=== PATIENT | female | born 1975 | race Caucasian/White ===

== ENCOUNTER 2018-09-13 23:45 | Emergency (ER) | payer BC ==
[2018-09-14] MEDS ORDERED: Ondansetron 4 MG/2 ML SDV IVPUSH ONE (00:06)
[2018-09-14] MEDS ORDERED: Ketorolac 30 MG/ML SDV IVPUSH ONE (00:06)
[2018-09-14] MEDS ORDERED: HYDROmorphone 1 MG/ML Syringe IVPUSH ONE (00:06)
[2018-09-14] MEDS ORDERED: Tamsulosin 0.4 MG Cap.ER PO ONE (00:06)
--- NOTE | 2018-09-14 00:06 | EDM.PDOC ---
ED HPI GENERAL MEDICAL PROBLEM - General Chief Complaint: Back Pain or Injury Stated Complaint: PT HAS BACK PAIN Time Seen by Provider: 09/14/18 00:01 - History of Present Illness INITIAL COMMENTS - FREE TEXT/NARRATIVE: HISTORY AND PHYSICAL: History of present illness: Patient 43-year-old white female comes in with acute right flank pain with associated nausea vomiting this came on abruptly an hour prior to arrival and is quite severe she denies trauma denies history of urolithiasis denies fever chills chest pain shortness breath or other concern Review of systems: As per history of present illness and below otherwise all systems reviewed and negative. Past medical history: As per history of present illness and as reviewed below otherwise noncontributory. Surgical history: As per history of present illness and as reviewed below otherwise noncontributory. Social history: No reported history of drug or alcohol abuse. Family history: As per history of present illness and as reviewed below otherwise noncontributory. Physical exam: HEENT: Atraumatic, normocephalic, pupils reactive, negative for conjunctival pallor or scleral icterus, mucous membranes moist, throat clear, neck supple, nontender, trachea midline. Lungs: Clear to auscultation, breath sounds equal bilaterally, chest nontender. Heart: S1S2, regular, negative for clicks, rubs, or JVD. Abdomen: Soft, nondistended, nontender. Negative for masses or hepatosplenomegaly. Right-sided costovertebral tenderness. Pelvis: Stable nontender. Genitourinary: Deferred. Rectal: Deferred. Extremities: Atraumatic, negative for cords or calf pain. Neurovascular unremarkable. Neuro: Awake, alert, oriented. Cranial nerves II through XII unremarkable. Cerebellum unremarkable. Motor and sensory unremarkable throughout. Exam nonfocal. Diagnostics: CBC CMP UA CT abdomen and pelvis Therapeutics: Saline 1 L bolus Dilaudid 1 mg IV Toradol 30 mg IV Zofran 4 mg IV Flomax 0.4 mg by mouth Impression: 1 acute right flank pain Definitive disposition and diagnosis as appropriate pending reevaluation and review of above. 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 ED EXAM, GENERAL - Physical Exam Exam: See Below (See dictation) Course - Vital Signs Last Recorded V/S: Last Vital Signs Temp 36.5 C 09/13/18 23:49 Pulse 113 H 09/13/18 23:49 Resp 22 H 09/13/18 23:49 BP 131/93 H 09/13/18 23:49 Pulse Ox 94 L 09/13/18 23:49 - Orders/Labs/Meds Orders: Active Orders 24 hr Category Date Time Status Sodium Chloride 0.9% [Normal Saline] 1,000 ml Med 09/14/18 00:15 Active IV ASDIRECTED cefTRIAXone [Rocephin in Dextrose,Iso-Osm 1 GM/50 ML] 1 Med 09/14/18 01:22 Active gm Premix Bag 1 bag IV ONETIME Medication Orders Sodium Chloride (Normal Saline) 1,000 mls @ 999 mls/hr IV ASDIRECTED TOBI Last Admin: 09/14/18 00:22 Dose: 999 mls/hr Ceftriaxone Sodium/Dextrose 1 (gm/ Premix) 50 mls @ 100 mls/hr IV ONETIME ONE Stop: 09/14/18 01:51 Labs: Laboratory Tests 09/14/18 09/14/18 09/14/18 Range/Units 00:01 00:14 00:14 WBC 7.74 (4.0-11.0) K/uL RBC 4.45 (4.30-5.90) M/uL Hgb 14.4 (12.0-16.0) g/dL Hct 41.2 (36.0-46.0) % MCV 92.6 (80.0-98.0) fL MCH 32.4 H (27.0-32.0) pg MCHC 35.0 (31.0-37.0) g/dL RDW Std Deviation 42.3 (28.0-62.0) fl RDW Coeff of Chloe 13 (11.0-15.0) % Plt Count 199 (150-400) K/uL MPV 9.00 (7.40-12.00) fL Neut % (Auto) 55.9 (48.0-80.0) % Lymph % (Auto) 32.7 (16.0-40.0) % [place] % (Auto) 9.4 (0.0-15.0) % Eos % (Auto) 1.6 (0.0-7.0) % Baso % (Auto) 0.4 (0.0-1.5) % Neut # (Auto) 4.3 (1.4-5.7) K/uL Lymph # (Auto) 2.5 H (0.6-2.4) K/uL [place] # (Auto) 0.7 (0.0-0.8) K/uL Eos # (Auto) 0.1 (0.0-0.7) K/uL Baso # (Auto) 0.0 (0.0-0.1) K/uL Nucleated RBC % 0.0 /100WBC Nucleated RBCs # 0 K/uL Sodium 143 (136-145) mmol/L Potassium 3.7 (3.5-5.1) mmol/L Chloride 108 H (98-107) mmol/L Carbon Dioxide 28.2 (21.0-32.0) mmol/L BUN 21 H (7.0-18.0) mg/dL Creatinine 1.0 (0.6-1.0) mg/dL Est Cr Clr Drug Dosing 67.91 mL/min Estimated GFR (MDRD) > 60.0 ml/min Glucose 88 (74-106) mg/dL Calcium 9.5 (8.5-10.1) mg/dL Total Bilirubin 0.2 (0.2-1.0) mg/dL AST 15 (15-37) IU/L ALT 30 (14-63) IU/L Alkaline Phosphatase 58 (46-116) U/L Total Protein 6.6 (6.4-8.2) g/dL Albumin 3.2 L (3.4-5.0) g/dL Globulin 3.4 (2.6-4.0) g/dL Albumin/Globulin Ratio 0.9 (0.9-1.6) Urine Color YELLOW Urine Appearance HAZY Urine pH 5.5 (5.0-8.0) Ur Specific [place] >= 1.030 (1.001-1.035) Urine Protein NEGATIVE (NEGATIVE) mg/dL Urine Glucose (UA) NEGATIVE (NEGATIVE) mg/dL Urine Ketones 15 H (NEGATIVE) mg/dL Urine Occult Blood MODERATE H (NEGATIVE) Urine Nitrite NEGATIVE (NEGATIVE) Urine Bilirubin NEGATIVE (NEGATIVE) Urine Urobilinogen 0.2 (<2.0) EU/dL Ur Leukocyte Esterase NEGATIVE (NEGATIVE) Urine RBC 2-4 (0-2/HPF) Urine WBC 2-4 (0-5/HPF) Ur Epithelial Cells FEW (NONE-FEW) Urine Bacteria 1+ H (NEGATIVE) Meds: Medications Generic Name Dose Route Start Last Admin Trade Name Freq PRN Reason Stop Dose Admin Sodium Chloride 1,000 mls @ 999 mls/hr 09/14/18 00:15 09/14/18 00:22 Normal Saline IV 999 mls/hr ASDIRECTED TOBI Administration Ceftriaxone Sodium/Dextrose 1 50 mls @ 100 mls/hr 09/14/18 01:22 gm/ Premix IV 09/14/18 01:51 ONETIME ONE Discontinued Medications Generic Name Dose Route Start Last Admin Trade Name Freq PRN Reason Stop Dose Admin Hydromorphone HCl 1 mg 09/14/18 00:06 09/14/18 00:26 Dilaudid IVPUSH 09/14/18 00:07 1 mg ONETIME ONE Administration Ketorolac Tromethamine 30 mg 09/14/18 00:06 09/14/18 00:26 Toradol IVPUSH 09/14/18 00:07 30 mg ONETIME ONE Administration Ondansetron HCl 4 mg 09/14/18 00:06 09/14/18 00:22 Zofran IVPUSH 09/14/18 00:07 4 mg ONETIME ONE Administration Tamsulosin HCl 0.4 mg 09/14/18 00:06 09/14/18 00:28 Flomax PO 09/14/18 00:07 0.4 mg ONETIME ONE Administration Departure - Departure Time of Disposition: Disposition: Home, Self-Care 01 Condition: Good Clinical Impression: Flank pain, UTI (urinary tract infection) - Discharge Information Referrals: PCP,None [Primary Care Provider] - Forms: ED Department Discharge Additional Instructions: The following information is given to patients seen in the emergency department who are being discharged to home. This information is to outline your options for follow-up care. We provide all patients seen in our emergency department with a follow-up referral. The need for follow-up, as well as the timing and circumstances, are variable depending upon the specifics of your emergency department visit. If you don't have a primary care physician on staff, we will provide you with a referral. We always advise you to contact your personal physician following an emergency department visit to inform them of the circumstance of the visit and for follow-up with them and/or the need for any referrals to a consulting specialist. The emergency department will also refer you to a specialist when appropriate. This referral assures that you have the opportunity for followup care with a specialist. All of these measure are taken in an effort to provide you with optimal care, which includes your followup. Under all circumstances we always encourage you to contact your private physician who remains a resource for coordinating your care. When calling for followup care, please make the office aware that this follow-up is from your recent emergency room visit. If for any reason you are refused follow-up, please contact the [facility] emergency department at and asked to speak to the emergency department charge nurse. Keflex as prescribed continue current medications keep scheduled appointment with primary medical doctor and return as needed as discussed push fluids - My Orders Last 24 Hours: My Active Orders 09/14/18 00:15 Sodium Chloride 0.9% [Normal Saline] 1,000 ml IV ASDIRECTED 09/14/18 01:22 cefTRIAXone [Rocephin in Dextrose,Iso-Osm 1 GM/50 ML] 1 gm Premix Bag 1 bag IV ONETIME - Assessment/Plan Last 24 Hours: My Active Orders 09/14/18 00:15 Sodium Chloride 0.9% [Normal Saline] 1,000 ml IV ASDIRECTED 09/14/18 01:22 cefTRIAXone [Rocephin in Dextrose,Iso-Osm 1 GM/50 ML] 1 gm Premix Bag 1 bag IV ONETIME
[2018-09-14] MEDS ORDERED: Sodium Chloride 0.9% 1,000 ML IV SCH (00:15)
[2018-09-14 00:40] LABS: CHLORIDE,CL 108 mmol/L (98-107); SODIUM,NA 143 mmol/L (136-145)
--- NOTE | 2018-09-14 01:13 | CT ---
INDICATION: Right flank pain TECHNIQUE: CT abdomen and pelvis without contrast. COMPARISON: None FINDINGS: Lower chest: Unremarkable. Liver: Unremarkable. Spleen: Unremarkable. Pancreas: Unremarkable. Gallbladder and bile ducts: Unremarkable. Kidneys: Unremarkable. No kidney or ureteral stones and no hydronephrosis. Adrenal glands: Unremarkable. GI tract: Diffuse colonic fecal retention. Appendix is normal. Vascular structures: Unremarkable. Lymph nodes: Unremarkable. Miscellaneous: Small fat containing umbilical hernia. No free air or significant free fluid. Pelvic Organs: Unremarkable. Bones: Unremarkable for age. IMPRESSION: No urinary tract stones or hydronephrosis. Diffuse colonic fecal retention. Normal appearing appendix. Dictated by Mateo Cristobal MD @ 09/14/2018 1:12:01 AM Please note that all CT scans at this facility use dose modulation, iterative reconstruction, and/or weight-based dosing when appropriate to reduce radiation dose to as low as reasonably achievable. Dictated by: Mateo Cristobal MD @ 09/14/2018 01:12:09 (Electronically Signed)
[2018-09-14] MEDS ORDERED: cefTRIAXone 1 GM in Premix Bag 1 BAG IV ONE (01:22)
== END 2018-09-14 02:06 | disposition home or self-care (01) ==
LOC: MW.ED 23:45
DX: N39.0 Urinary tract infection, site not specified (principal); F41.9 Anxiety disorder, unspecified; F32.9 Major depressive disorder, single episode, unspecified; Z88.2 Allergy status to sulfonamides; Z79.899 Other long term (current) drug therapy
CPT/HCPCS: 36415; 74176; 80053; 81001; 85025; 96361; 96365; 96375; 99284; A9270; J0696; J1170; J1885; J2405; J7040; 99283

== ENCOUNTER 2018-12-02 08:52 | Emergency (ER) | payer BC ==
[2018-12-02] MEDS ORDERED: Sodium Chloride 0.9% 1,000 ML IV ONE (09:40)
[2018-12-02] MEDS ORDERED: Ondansetron 4 MG/2 ML SDV IVPUSH ONE ×2 (09:40→13:01)
[2018-12-02] MEDS ORDERED: Ketorolac 30 MG/ML SDV IVPUSH ONE (09:41)
--- NOTE | 2018-12-02 09:59 | EDM.PDOC ---
ED HPI GENERAL MEDICAL PROBLEM - General Chief Complaint: Abdominal Pain Stated Complaint: SPOKE TO NURSE Time Seen by Provider: 12/02/18 09:59 Source of Information: Reports: Patient - History of Present Illness INITIAL COMMENTS - FREE TEXT/NARRATIVE: HISTORY AND PHYSICAL: History of present illness: [Patient presents with right upper quadrant pain Initial exam was back in August with Dr. Ambrosio via CT and lab performed, in the interim patient had moved back to [place] for a few months and ended up with ultrasound confirming cholelithiasis, however now she has returned back in [place] and has continued symptoms 8 out of 10 right upper quadrant pain radiating to the back today Head required Toradol dose of Dilaudid and repeat dosing pain is intractable 6 out of 10 with some nausea no fever vomiting chills sweats ] Review of systems: As per history of present illness and below otherwise all systems reviewed and negative. Past medical history: As per history of present illness and as reviewed below otherwise noncontributory. Surgical history: As per history of present illness and as reviewed below otherwise noncontributory. Social history: No reported history of drug or alcohol abuse. Family history: As per history of present illness and as reviewed below otherwise noncontributory. Physical exam: HEENT: Atraumatic, normocephalic, pupils reactive, negative for conjunctival pallor or scleral icterus, mucous membranes moist, throat clear, neck supple, nontender, trachea midline. Lungs: Clear to auscultation, breath sounds equal bilaterally, chest nontender. Heart: S1S2, regular, negative for clicks, rubs, or JVD. Abdomen: Soft, nondistended, nontender. Negative for masses or hepatosplenomegaly. Negative for costovertebral tenderness. Pelvis: Stable nontender. Genitourinary: Deferred. Rectal: Deferred. Extremities: Atraumatic, negative for cords or calf pain. Neurovascular unremarkable. Neuro: Awake, alert, oriented. Cranial nerves II through XII unremarkable. Cerebellum unremarkable. Motor and sensory unremarkable throughout. Exam nonfocal. Diagnostics: [TBC CMP UA lipase Abdomen ultrasound limited ] Therapeutics: [Normal saline Zofran Toradol Dilaudid 1 mg IV Dilaudid 0.5 mg IV I did discuss patient with Dr. Xie recommends admit to hospitalist to see patient in consult ] Impression: [Intractable right upper quadrant pain Known history of cholelithiasis Definitive disposition and diagnosis as appropriate pending reevaluation and review of above. 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: Psychiatric History: Reports: Anxiety, Depression, PTSD - Past Surgical History Head Surgeries/Procedures: Reports: None Female Surgical History: Reports: Section, D&C, Dilitation & Evacuation, Hysterectomy, Other (See Below) Other Female Surgeries/Procedures: laparoscopy, hysteroscopy, scar revision Social & Family History - Family History Family Medical History: Noncontributory - Tobacco Use Smoking Status *Q: Never Smoker - Recreational Drug Use Recreational Drug Use: No ED ROS GENERAL - Review of Systems Review Of Systems: See Below ED EXAM, GENERAL - Physical Exam Exam: See Below Course - Vital Signs Last Recorded V/S: Last Vital Signs Temp 96.0 F 12/02/18 09:03 Pulse 85 12/02/18 11:01 Resp 14 12/02/18 11:01 BP 114/71 12/02/18 11:01 Pulse Ox 97 12/02/18 11:01 - Orders/Labs/Meds Orders: Active Orders 24 hr Category Date Time Status CULTURE BLOOD [BC] Stat Lab 12/02/18 10:07 Received CULTURE BLOOD [BC] Stat Lab 12/02/18 10:19 Received Blood Culture x2 Reflex Set [OM.PC] Stat Oth 12/02/18 09:42 Ordered Labs: Laboratory Tests 12/02/18 12/02/18 12/02/18 Range/Units 09:51 09:51 10:19 WBC 5.94 (4.0-11.0) K/uL RBC 4.54 (4.30-5.90) M/uL Hgb 14.6 (12.0-16.0) g/dL Hct 42.2 (36.0-46.0) % MCV 93.0 (80.0-98.0) fL MCH 32.2 H (27.0-32.0) pg MCHC 34.6 (31.0-37.0) g/dL RDW Std Deviation 42.6 (28.0-62.0) fl RDW Coeff of Chloe 13 (11.0-15.0) % Plt Count 247 (150-400) K/uL MPV 9.10 (7.40-12.00) fL Neut % (Auto) 69.7 (48.0-80.0) % Lymph % (Auto) 22.7 (16.0-40.0) % [place] % (Auto) 5.7 (0.0-15.0) % Eos % (Auto) 1.2 (0.0-7.0) % Baso % (Auto) 0.7 (0.0-1.5) % Neut # (Auto) 4.1 (1.4-5.7) K/uL Lymph # (Auto) 1.4 (0.6-2.4) K/uL [place] # (Auto) 0.3 (0.0-0.8) K/uL Eos # (Auto) 0.1 (0.0-0.7) K/uL Baso # (Auto) 0.0 (0.0-0.1) K/uL Nucleated RBC % 0.0 /100WBC Nucleated RBCs # 0 K/uL Sodium 142 (136-145) mmol/L Potassium 4.6 (3.5-5.1) mmol/L Chloride 105 (98-107) mmol/L Carbon Dioxide 27.7 (21.0-32.0) mmol/L BUN 18 (7.0-18.0) mg/dL Creatinine 1.1 H (0.6-1.0) mg/dL Est Cr Clr Drug Dosing 61.73 mL/min Estimated GFR (MDRD) 54.2 ml/min Glucose 93 (74-106) mg/dL Calcium 9.3 (8.5-10.1) mg/dL Total Bilirubin 0.3 (0.2-1.0) mg/dL AST 15 (15-37) IU/L ALT 29 (14-63) IU/L Alkaline Phosphatase 53 (46-116) U/L Troponin I < 0.050 (0.000-0.056) ng/mL Total Protein 7.4 (6.4-8.2) g/dL Albumin 3.7 (3.4-5.0) g/dL Globulin 3.7 (2.6-4.0) g/dL Albumin/Globulin Ratio 1.0 (0.9-1.6) Lipase 106 (73-393) U/L Urine Color YELLOW Urine Appearance CLEAR Urine pH 5.5 (5.0-8.0) Ur Specific [place] 1.020 (1.001-1.035) Urine Protein NEGATIVE (NEGATIVE) mg/dL Urine Glucose (UA) NEGATIVE (NEGATIVE) mg/dL Urine Ketones NEGATIVE (NEGATIVE) mg/dL Urine Occult Blood SMALL H (NEGATIVE) Urine Nitrite NEGATIVE (NEGATIVE) Urine Bilirubin NEGATIVE (NEGATIVE) Urine Urobilinogen 0.2 (<2.0) EU/dL Ur Leukocyte Esterase NEGATIVE (NEGATIVE) Urine RBC 0-1 (0-2/HPF) Urine WBC 0-1 (0-5/HPF) Ur Epithelial Cells FEW (NONE-FEW) Urine Bacteria FEW (NEGATIVE) Meds: Medications Discontinued Medications Generic Name Dose Route Start Last Admin Trade Name Freq PRN Reason Stop Dose Admin Hydromorphone HCl 1 mg 12/02/18 10:27 12/02/18 10:30 Dilaudid IVPUSH 12/02/18 10:28 Not Given ONETIME ONE Hydromorphone HCl 1 mg 12/02/18 10:30 12/02/18 10:34 Dilaudid IVPUSH 12/02/18 10:31 1 mg ONETIME ONE Administration Sodium Chloride 1,000 mls @ 999 mls/hr 12/02/18 09:40 12/02/18 09:50 Normal Saline IV 12/02/18 10:40 999 mls/hr STAT ONE Administration Ketorolac Tromethamine 30 mg 12/02/18 09:41 12/02/18 09:51 Toradol IVPUSH 12/02/18 09:42 30 mg ONETIME ONE Administration Ondansetron HCl 8 mg 12/02/18 09:40 12/02/18 09:51 Zofran IVPUSH 12/02/18 09:41 8 mg ONETIME ONE Administration Departure - Departure Time of Disposition: 12:40 Disposition: Refer to Observation Condition: Fair Clinical Impression: Abdominal pain, Cholelithiasis - Discharge Information Referrals: PCP,Unknown [Primary Care Provider] - Forms: ED Department Discharge - My Orders Last 24 Hours: My Active Orders 12/02/18 09:42 Blood Culture x2 Reflex Set [OM.PC] Stat 12/02/18 10:07 CULTURE BLOOD [BC] Stat 12/02/18 10:19 CULTURE BLOOD [BC] Stat - Assessment/Plan Last 24 Hours: My Active Orders 12/02/18 09:42 Blood Culture x2 Reflex Set [OM.PC] Stat 12/02/18 10:07 CULTURE BLOOD [BC] Stat 12/02/18 10:19 CULTURE BLOOD [BC] Stat
[2018-12-02] MEDS ORDERED: HYDROmorphone 2 MG/ML SDV IVPUSH ONE (10:27)
[2018-12-02] MEDS ORDERED: HYDROmorphone 2 MG/ML Syringe IVPUSH ONE (10:30)
[2018-12-02 10:38] LABS: CHLORIDE,CL 105 mmol/L (98-107); SODIUM,NA 142 mmol/L (136-145)
--- NOTE | 2018-12-02 11:11 | US ---
EXAMINATION: Right upper quadrant ultrasound HISTORY: Pain COMPARISON: 09/14/2018 TECHNIQUE: Grayscale and color Doppler imaging obtained of the right upper quadrant. FINDINGS: The visualized pancreas appears normal. The liver is normal in contour and echotexture without a focal hepatic mass. The common bile duct measures 5 mm. The gallbladder wall thickness is normal. There is sludge and gallstones noted within the gallbladder. No pericholecystic fluid. The right kidney measures 10.4 cm [id number] without evidence hydronephrosis. IMPRESSION: 1. Cholelithiasis without evidence of cholecystitis.
[2018-12-02] MEDS ORDERED: HYDROmorphone 2 MG/ML SDV IVPUSH PRN (12:56)
[2018-12-02] MEDS ORDERED: HYDROmorphone 1 MG/ML Syringe ONE (12:59)
[2018-12-02] MEDS ORDERED: Ondansetron 4 MG/2 ML SDV ONE (13:02)
[2018-12-02] MEDS ORDERED: HYDROmorphone 1 MG/ML Syringe IVPUSH PRN ×2 (13:06→13:59)
[2018-12-02] MEDS ORDERED: Ondansetron 4 MG/2 ML SDV IVPUSH PRN (13:59)
[2018-12-02] MEDS ORDERED: Sodium Chloride 0.9% 1,000 ML IV SCH (14:00)
--- NOTE | 2018-12-02 14:02 | PCM.HP ---
H&P History of Present Illness - General Date of Service: 12/02/18 Admit Problem/Dx: Admission Diagnosis/Problem Admission Diagnosis/Problem Pain Source of Information: Patient History Limitations: Reports: No Limitations Right Middle Back Pain Score (Numeric/FACES): 8 - Related Data Allergies/Adverse Reactions: Allergies Allergy/AdvReac Type Severity Reaction Status Date / Time adhesive tape Allergy Blisters Verified 12/02/18 09:09 Sulfa (Sulfonamide Allergy Rash Verified 12/02/18 09:06 Antibiotics) Home Medications: Home Meds ClonazePAM [KlonoPIN] 0.5 mg PO BID 07/10/18 [History] Estrogens, Conjugated [Premarin] 0.625 mg PO DAILY 07/10/18 [History] buPROPion HCl [Wellbutrin Xl] 300 mg PO DAILY 07/10/18 [History] Past Medical History HEENT History: Reports: Other (See Below) Other HEENT History: wears glasses Genitourinary History: Reports: 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: Psychiatric History: Reports: Anxiety, Depression, PTSD - Past Surgical History Head Surgeries/Procedures: Reports: None Female Surgical History: Reports: Section, D&C, Dilitation & Evacuation, Hysterectomy, Other (See Below) Other Female Surgeries/Procedures: laparoscopy, hysteroscopy, scar revision Social & Family History - Family History Family Medical History: Noncontributory - Tobacco Use Smoking Status *Q: Never Smoker - Recreational Drug Use Recreational Drug Use: No Exam - Vital Signs Vital Signs: Last Vital Signs Temp 96.0 F 12/02/18 09:03 Pulse 82 12/02/18 13:10 Resp 18 12/02/18 13:10 BP 116/75 12/02/18 13:10 Pulse Ox 92 L 12/02/18 13:10 Weight: 70.307 kg - Patient Data Lab Results Last 24 hrs: Laboratory Results - last 24 hr 12/02/18 12/02/18 12/02/18 Range/Units 09:51 09:51 10:19 WBC 5.94 (4.0-11.0) K/uL RBC 4.54 (4.30-5.90) M/uL Hgb 14.6 (12.0-16.0) g/dL Hct 42.2 (36.0-46.0) % MCV 93.0 (80.0-98.0) fL MCH 32.2 H (27.0-32.0) pg MCHC 34.6 (31.0-37.0) g/dL RDW Std Deviation 42.6 (28.0-62.0) fl RDW Coeff of Chloe 13 (11.0-15.0) % Plt Count 247 (150-400) K/uL MPV 9.10 (7.40-12.00) fL Neut % (Auto) 69.7 (48.0-80.0) % Lymph % (Auto) 22.7 (16.0-40.0) % [place] % (Auto) 5.7 (0.0-15.0) % Eos % (Auto) 1.2 (0.0-7.0) % Baso % (Auto) 0.7 (0.0-1.5) % Neut # (Auto) 4.1 (1.4-5.7) K/uL Lymph # (Auto) 1.4 (0.6-2.4) K/uL [place] # (Auto) 0.3 (0.0-0.8) K/uL Eos # (Auto) 0.1 (0.0-0.7) K/uL Baso # (Auto) 0.0 (0.0-0.1) K/uL Nucleated RBC % 0.0 /100WBC Nucleated RBCs # 0 K/uL Sodium 142 (136-145) mmol/L Potassium 4.6 (3.5-5.1) mmol/L Chloride 105 (98-107) mmol/L Carbon Dioxide 27.7 (21.0-32.0) mmol/L BUN 18 (7.0-18.0) mg/dL Creatinine 1.1 H (0.6-1.0) mg/dL Est Cr Clr Drug Dosing 61.73 mL/min Estimated GFR (MDRD) 54.2 ml/min Glucose 93 (74-106) mg/dL Calcium 9.3 (8.5-10.1) mg/dL Total Bilirubin 0.3 (0.2-1.0) mg/dL AST 15 (15-37) IU/L ALT 29 (14-63) IU/L Alkaline Phosphatase 53 (46-116) U/L Troponin I < 0.050 (0.000-0.056) ng/mL Total Protein 7.4 (6.4-8.2) g/dL Albumin 3.7 (3.4-5.0) g/dL Globulin 3.7 (2.6-4.0) g/dL Albumin/Globulin Ratio 1.0 (0.9-1.6) Lipase 106 (73-393) U/L Urine Color YELLOW Urine Appearance CLEAR Urine pH 5.5 (5.0-8.0) Ur Specific [place] 1.020 (1.001-1.035) Urine Protein NEGATIVE (NEGATIVE) mg/dL Urine Glucose (UA) NEGATIVE (NEGATIVE) mg/dL Urine Ketones NEGATIVE (NEGATIVE) mg/dL Urine Occult Blood SMALL H (NEGATIVE) Urine Nitrite NEGATIVE (NEGATIVE) Urine Bilirubin NEGATIVE (NEGATIVE) Urine Urobilinogen 0.2 (<2.0) EU/dL Ur Leukocyte Esterase NEGATIVE (NEGATIVE) Urine RBC 0-1 (0-2/HPF) Urine WBC 0-1 (0-5/HPF) Ur Epithelial Cells FEW (NONE-FEW) Urine Bacteria FEW (NEGATIVE) Result Diagrams: 12/02/18 09:51 12/02/18 09:51 Orders Last 24hrs: Active Orders 24 hr Category Date Time Status Admission Status [Patient Status] [ADT] Stat ADT 12/02/18 12:40 Active Antiembolic Devices [RC] PER UNIT ROUTINE Care 12/02/18 14:00 Ordered Intake and Output [RC] QSHIFT Care 12/02/18 14:00 Ordered Notify Provider Consults [RC] ASDIRECTED Care 12/02/18 14:01 Ordered Oxygen Therapy [RC] PRN Care 12/02/18 13:59 Ordered Up ad Erika [RC] ASDIRECTED Care 12/02/18 13:59 Ordered VTE/DVT Education [RC] PER UNIT ROUTINE Care 12/02/18 13:59 Ordered Vital Signs [RC] Q4H Care 12/02/18 13:59 Ordered Consult to Physician [CONS] Routine Cons 12/02/18 13:59 Ordered Nothing Per Oral Diet [DIET] Diet 12/02/18 Dinner Ordered CBC WITH AUTO DIFF [HEME] AM Lab 12/03/18 05:11 Ordered CBC WITH AUTO DIFF [HEME] AM Lab 12/04/18 05:11 Ordered CBC WITH AUTO DIFF [HEME] AM Lab 12/05/18 05:11 Ordered COMPREHENSIVE METABOLIC PN,CMP [CHEM] AM Lab 12/03/18 05:11 Ordered COMPREHENSIVE METABOLIC PN,CMP [CHEM] AM Lab 12/04/18 05:11 Ordered COMPREHENSIVE METABOLIC PN,CMP [CHEM] AM Lab 12/05/18 05:11 Ordered CULTURE BLOOD [BC] Stat Lab 12/02/18 10:07 Received CULTURE BLOOD [BC] Stat Lab 12/02/18 10:19 Received HYDROmorphone [Dilaudid] Med 12/02/18 13:06 Active 0.5 mg IVPUSH ONETIME PRN HYDROmorphone [Dilaudid] Med 12/02/18 13:59 Ordered 0.5 mg IVPUSH Q2H PRN Ondansetron [Zofran] Med 12/02/18 13:59 Ordered 4 mg IVPUSH Q4H PRN Sodium Chloride 0.9% @ 125 MLS/HR (1000ml) Med 12/02/18 14:00 Ordered Sodium Chloride 0.9% [Normal Saline] 1,000 ml IV ASDIRECTED Blood Culture x2 Reflex Set [OM.PC] Stat Oth 12/02/18 09:42 Ordered Sequential Compression Device [OM.PC] Per Unit Routine Oth 12/02/18 14:00 Ordered Resuscitation Status Routine Resus Stat 12/02/18 13:59 Ordered Medication Orders Hydromorphone HCl (Dilaudid) 0.5 mg IVPUSH ONETIME PRN PRN Reason: Pain Last Admin: 12/02/18 13:08 Dose: 0.5 mg
--- NOTE | 2018-12-02 22:03 | CONS ---
DATE OF CONSULTATION: 12/02/2018 DATE OF : 1975 PRIMARY CARE PHYSICIAN: Unknown PCP This is a consult from Dr. Mason in the ED. CONCERNING QUESTION: Symptomatic cholelithiasis. HISTORY OF PRESENT ILLNESS: The patient is a 43-year-old lady, complained to have a gallstone problem since August, and the patient was out and get ultrasound done at [place] and noted to have gallstones, and the patient was kind of doing fine, have gallstone attack every now and then, and the patient back in town and realized the attack is getting more frequent for the last week or two, and pain is epigastrium radiated to the back and radiated to the right upper quadrant, and repeat ultrasound in the emergency room shows a stone and sludge, and no signs or symptoms of cholecystitis. Surgery was consulted for management. Currently, the patient remarked the pain is about 7/10 and denied black urine. Denied white stool and denied jaundice. PAST MEDICAL HISTORY: Significant for no diabetic, MT, CVA, hypertension. PAST SURGICAL HISTORY: She has x2 and scar revision and abdominal hysterectomy. ALLERGIES: Please refer to nursing with detail. MEDICATIONS: Please refer to nursing with detail. SOCIAL HISTORY: Denied tobacco or alcohol abuse. FAMILY HISTORY: Noncontributory. PHYSICAL EXAMINATION: GENERAL: The patient is having a crying spell and tearful because of the pain and concerned about pain management. Otherwise, the patient is alert and oriented x3. HEENT: Normocephalic and atraumatic. Sclerae anicteric. LUNGS: Clear to auscultation. HEART: Regular rate and rhythm. ABDOMEN: Soft, nondistended. No pulsating tender in the midline abdominal structure. Minimal tenderness on the right upper quadrant. No rebound tenderness. No guarding and well-healed Pfannenstiel incision from superior spine to superior spine, very large. No signs or symptoms of hernia. LABORATORY DATA: Upon consultation, the patient is afebrile and white count is 5.9 and platelets 247, H and H are 15 and 4. , potassium is 4.6, BUN is 18, creatinine is 1.1. Total bilirubin is 0.3. AST, ALT of 50 and 29, alkaline phosphatase is 53, lipase is 106. Urine does not have signs or symptoms of UTI. IMPRESSION: Ultrasound shows stone and sludge and no pericholecystic fluid. Common bile duct is 5 mm. IMPRESSION: Symptomatic cholelithiasis, will benefit from pain management and antibiotic coat on the gallbladder. We had a lot of discussion and explanation with the patient. Spent 45 minutes with the patient. The patient preferred to stay at home to cool down the gallbladder, and the patient with abx and pain medications. Followup appointment with me in 2 days, and tentatively schedule surgery on morning. As always, thank you for the kind referral. JAKE / VANESSA /[id number] JOHANN
== END 2018-12-02 14:28 | disposition home or self-care (01) ==
LOC: MW.ED 08:52 → MW.MS 13:11 → UNDOADMOB 13:11 → MW.ED 14:28
DX: K80.20 Calculus of gallbladder without cholecystitis without obstruction (principal); R10.11 Right upper quadrant pain; F41.9 Anxiety disorder, unspecified; F32.9 Major depressive disorder, single episode, unspecified; Z88.2 Allergy status to sulfonamides; Z79.899 Other long term (current) drug therapy
CPT/HCPCS: 36415; 76705; 80053; 81001; 83690; 84484; 85025; 87040; 96361; 96374; 96375; 96376; 99284; J1170; J1885; J2405; J7040

== ENCOUNTER 2018-12-05 08:06 | Day surgery (SDC) | payer BC ==
[~2018-12-05 08:06] MED LIST: Lactated Ringers 1,000 ML IV SCH; ceFAZolin 2 GM in Premix Bag 1 BAG IV ONE
[2018-12-05] MEDS ORDERED: Bupivacaine 25%/EPINEPHrine/PF 30 ML ONE (09:13)
[2018-12-05] MEDS ORDERED: Octyl 2-Cyanoacrylate 1 Tube ONE (09:14)
--- NOTE | 2018-12-05 09:39 | PCM.PREANE ---
Preanesthetic Assessment - Anesthesia/Transfusion/Family Hx Anesthesia History: Prior Anesthesia Without Reaction Family History of Anesthesia Reaction: No Transfusion History: No Prior Transfusion(s) Intubation History: Unknown - Review of Systems General: No Symptoms Pulmonary: No Symptoms Cardiovascular: No Symptoms Gastrointestinal: No Symptoms Neurological: No Symptoms Other: Reports: None - Physical Assessment NPO Status Date: 12/04/18 NPO Status Time: 21:00 O2 Sat by Pulse Oximetry: 100 Respiratory Rate: 16 Vital Signs: Last Vital Signs Temp 96.1 F 12/05/18 08:55 Pulse 102 H 12/05/18 08:55 Resp 16 12/05/18 08:55 BP 133/66 12/05/18 08:55 Pulse Ox 100 12/05/18 08:55 Height: 5 ft 6 in Weight: 74.389 kg ASA Class: 2 Mental Status: Alert & Oriented x3 Airway Class: Mallampati = 2 Dentition: Reports: Normal Dentition ROM/Head Extension: Full Lungs: Clear to Auscultation, Normal Respiratory Effort Cardiovascular: Regular Rate, Regular Rhythm - Allergies Allergies/Adverse Reactions: Allergies Allergy/AdvReac Type Severity Reaction Status Date / Time adhesive tape Allergy Blisters Verified 12/04/18 15:15 Sulfa (Sulfonamide Allergy Rash Verified 12/04/18 15:15 Antibiotics) - Blood Blood Available: No - Anesthesia Plan Pre-Op Medication Ordered: None - Acknowledgements Anesthesia Type Planned: General Anesthesia Pt an Appropriate Candidate for the Planned Anesthesia: Yes Alternatives and Risks of Anesthesia Discussed w Pt/Guardian: Yes Pt/Guardian Understands and Agrees with Anesthesia Plan: Yes PreAnesthesia Questionnaire HEENT History: Reports: Other (See Below) Other HEENT History: wears glasses Cardiovascular History: Reports: None Respiratory History: Reports: None Gastrointestinal History: Reports: Cholelithiasis Genitourinary History: Reports: None CRA History: Reports: Musculoskeletal History: Reports: None Neurological History: Reports: None Psychiatric History: Reports: Anxiety, Depression, PTSD Endocrine/Metabolic History: Reports: None Hematologic History: Reports: None Immunologic History: Reports: None Oncologic (Cancer) History: Reports: None Dermatologic History: Reports: None - Past Surgical History Head Surgeries/Procedures: Reports: None HEENT Surgical History: Reports: None Cardiovascular Surgical History: Reports: None Respiratory Surgical History: Reports: None GI Surgical History: Reports: None Female Surgical History: Reports: Section, Cervical Cryotherapy, D&C , Dilitation & Evacuation, Hysterectomy, Other (See Below) Other Female Surgeries/Procedures: laparoscopy, hysteroscopy, scar revision Endocrine Surgical History: Reports: None Neurological Surgical History: Reports: None Musculoskeletal Surgical History: Reports: None Oncologic Surgical History: Reports: None Dermatological Surgical History: Reports: None - SUBSTANCE USE Smoking Status *Q: Never Smoker Recreational Drug Use History: No - HOME MEDS Home Medications: Home Meds ClonazePAM [KlonoPIN] 0.5 mg PO BID PRN 07/10/18 [History] Estrogens, Conjugated [Premarin] 0.625 mg PO DAILY 07/10/18 [History] buPROPion HCl [Wellbutrin Xl] 300 mg PO DAILY 07/10/18 [History] Docusate Sodium 100 mg PO ASDIRECTED 12/04/18 [History] HYDROmorphone [Dilaudid] 0.5 tab PO ASDIRECTED PRN 12/04/18 [History] Levofloxacin 750 mg PO DAILY 12/04/18 [History] Promethazine HCl 25 mg PO ASDIRECTED PRN 12/04/18 [History] - CURRENT (IN HOUSE) MEDS Current Meds: Current Medications Lactated Ringer's (Ringers, Lactated) 1,000 mls @ 125 mls/hr IV ASDIRECTED COUNTS INCLUDE 234 BEDS AT THE [facility] Last Admin: 12/05/18 09:10 Dose: 125 mls/hr Discontinued Medications Lactated Ringer's (Ringers, Lactated) 1,000 mls @ 125 mls/hr IV ASDIRECTED COUNTS INCLUDE 234 BEDS AT THE [facility] Cefazolin Sodium/Dextrose 2 gm (/ Premix) 50 mls @ 100 mls/hr IV ONETIME ONE Stop: 12/05/18 05:29 Bupivacaine HCl/Epinephrine Bitart (Sensorc Mpf 0.25%-Epi [id number]) Confirm Administered Dose 30 mls @ as directed .ROUTE .STK-MED ONE Stop: 12/05/18 09:14 Octyl Cyanoacrylate (Dermabond Advance) Confirm Administered Dose 1 applic .ROUTE .STK-MED ONE Stop: 12/05/18 09:15
[2018-12-05] MEDS ORDERED: Scopolamine 1.5 MG Transdermal Patch TRDERM PRN (09:46)
[2018-12-05] MEDS ORDERED: Propofol 200 MG/20 ML SDV ONE (09:55)
[2018-12-05] MEDS ORDERED: Midazolam 1 MG/ML 2 ML SDV ONE (09:56)
[2018-12-05] MEDS ORDERED: fentaNYL 250 MCG/5 ML SDV ONE (09:56)
[2018-12-05] MEDS ORDERED: Ondansetron 4 MG/2 ML SDV ONE (10:31)
[2018-12-05] MEDS ORDERED: Dexamethasone 4 MG/ML 5 ML MDV ONE (10:31)
[2018-12-05] MEDS ORDERED: Rocuronium 100 MG/10 ML Syringe ONE (10:31)
[2018-12-05] MEDS ORDERED: Promethazine 25 MG/ML SDV IM ONE (10:57)
[2018-12-05] MEDS ORDERED: fentaNYL 100 MCG/2 ML SDV IVPUSH PRN (10:57)
[2018-12-05] MEDS ORDERED: Neostigmine Methylsulfate 1 MG/ML 5 ML Syringe ONE (11:15)
[2018-12-05] MEDS ORDERED: Glycopyrrolate 0.2 MG/ML SDV ONE (11:15)
[2018-12-05] MEDS ORDERED: Ketorolac 30 MG/ML SDV ONE (11:18)
[2018-12-05] MEDS ORDERED: HYDROmorphone 2 MG/ML Syringe ONE (11:52)
[2018-12-05] MEDS: HYDROmorphone 2 MG/ML SDV IVPUSH ONE ×2 (11:53→12:03)
--- NOTE | 2018-12-05 12:18 | PCM.POSTAN ---
POST ANESTHESIA ASSESSMENT - MENTAL STATUS Mental Status: Alert, Oriented - RESPIRATORY Respiratory Status: Respiratory Rate WNL, Airway Patent, O2 Saturation Stable - CARDIOVASCULAR CV Status: Pulse Rate WNL, Blood Pressure Stable - GASTROINTESTINAL GI Status: No Symptoms - PAIN Pain Score: 0 - POST OP HYDRATION Hydration Status: Adequate & Stable
--- NOTE | 2018-12-05 12:56 | PCM48HPAN ---
Post Anesthesia Note - EVALUATION WITHIN 48HRS OF ANESTHETIC Vital Signs in Normal Range: Yes Patient Participated in Evaluation: Yes Respiratory Function Stable: Yes Airway Patent: Yes Cardiovascular Function Stable: Yes Hydration Status Stable: Yes Pain Control Satisfactory: Yes Nausea and Vomiting Control Satisfactory: Yes Mental Status Recovered: Yes Resp Rate: 16
--- NOTE | 2018-12-05 16:59 | PCM.OPNOTE ---
- General Post-Op/Procedure Note Date of Surgery/Procedure: 12/05/18 Operative Procedure(s): lap vahe Findings: gb was green and yellow, cw chronic cholecystitis; wall was not thickened; several small stones; bile was very thick, almost like glue; [id number] Pre Op Diagnosis: acute and chronic cholecystitis Post-Op Diagnosis: Same Anesthesia Technique: General ET Tube Primary Surgeon: Josep Hubbard Pathology: sent Complications: None Condition: Good Free Text/Narrative:: Intake & Output 12/05/18 12/05/18 12/05/18 06:59 14:59 22:59 Intake Total 1350 Output Total 150 Balance 1200
--- NOTE | 2018-12-06 01:45 | OR ---
SURGEON: Josep Hubbard MD DATE OF PROCEDURE: 12/05/2018 PREOPERATIVE DIAGNOSIS: Acute on chronic cholecystitis. POSTOPERATIVE DIAGNOSIS: Acute on chronic cholecystitis. PROCEDURE PERFORMED: Laparoscopic cholecystectomy. COMPLICATIONS: None. FINDINGS: Gallbladder was green and yellow, consistent with chronic cholecystitis. Wall was not thickened. Several small stones. Bile was very thick, almost like glue. PROCEDURE DETAILS: The patient was taken to the operating room and placed in the supine position. After the intubation of general endotracheal anesthesia, the patient's abdomen was prepped and draped in the usual sterile fashion. Using Dataguise, a 12 mm trocar was placed supraumbilically and then followed with pneumoperitoneum. A 5 mm trocar was placed in the epigastrium and two 5 mm trocars placed in the right upper quadrant. The placement of the last three trocars was done under direct video supervision. Upon gaining entrance to the abdominal cavity, an extensive examination was then performed. The gallbladder was located and identified and retracted to the dome of the liver at the triangle of Calot. The cystic duct was clipped three more times and then using the endoscopic clip, was transected with placement of the endoscopic clip and transection was performed with care, ensuring the posterior prong of the instruments were clearly visualized prior to exercising the procedure. The gallbladder was dissected using electrocautery out of the liver bed and then removed using endoscopic bag through the umbilical site. The gallbladder was removed en bloc and there was no bile spillage and this was then followed with extensive irrigation until the bile was clear from blood and bile. The trocars were then removed under direct video supervision. The 12 mm umbilical site was then closed with deep stitches using 0 Vicryl followed with proximal stitches using 3-0 Vicryl and Dermabond. The other three trocar sites were closed with 3-0 Vicryl followed with approximation of skin with Dermabond. The patient was then awakened and extubated and transferred to the recovery room in hemodynamically stable condition. At the conclusion of the surgery, before closing the abdominal wound, instrument count and sponge count were done and were correct. The patient tolerated the procedure well and there were no intraoperative complications. Dr. Hubbard was present through the whole procedure. Just before surgery, a timeout was called. The patient was identified and procedure identified and procedure started. Intraoperative findings, as dictated above. LIANS / MODL /[id number]
== END 2018-12-05 13:19 | disposition home or self-care (01) ==
LOC: MW.SDS 08:06
PROVIDERS: ATTEND Surgery
DX: K80.12 Calculus of gallbladder with acute and chronic cholecystitis without obstruction (principal); F41.9 Anxiety disorder, unspecified; Z79.810 Long term (current) use of selective estrogen receptor modulators (SERMs); Z79.891 Long term (current) use of opiate analgesic; Z79.2 Long term (current) use of antibiotics; Z79.899 Other long term (current) drug therapy; Z79.890 Hormone replacement therapy; Z88.2 Allergy status to sulfonamides; Z91.048 Other nonmedicinal substance allergy status
CPT/HCPCS: 47562; 88304; A9270; J1100; J1170; J1885; J2001; J2250; J2405; J2704; J3010; J3490; J7120; 00790

== ENCOUNTER 2018-12-14 12:46 | Emergency (ER) | payer BC ==
--- NOTE | 2018-12-14 13:05 | EDM.PDOC ---
ED HPI GENERAL MEDICAL PROBLEM - General Chief Complaint: Abdominal Pain Stated Complaint: PAIN IN AREA PT HAD SURG. Time Seen by Provider: 12/14/18 13:00 Source of Information: Reports: Patient History Limitations: Reports: No Limitations - History of Present Illness INITIAL COMMENTS - FREE TEXT/NARRATIVE: HISTORY AND PHYSICAL: History of present illness: Patient is a 43-year-old female who presents to the emergency room with complaints of right upper quadrant abdominal pain and right flank pain. Patient had a cholecystectomy on 12/05/[address] Hubbard. She states she has Dilaudid and promethazine available to her at home. She has been taking his medications routinely over the past 24 hours but now has intractable abdominal pain. States "my pain is just as bad as before they took my gallbladder out". Patient denies any fever, chills, headache, change in vision, syncope or near syncope. Denies any chest pain, shortness of breath or cough. Denies any diarrhea, constipation or dysuria. Has not noted any blood in urine or stool. Patient has been eating and drinking appropriately. Review of systems: As per history of present illness and below otherwise all systems reviewed and negative. Past medical history: As per history of present illness and as reviewed below otherwise noncontributory. Surgical history: As per history of present illness and as reviewed below otherwise noncontributory. Social history: See social history for further information Family history: As per history of present illness and as reviewed below otherwise noncontributory. Physical exam: General: Well-developed and well-nourished 43-year-old female. Alert and oriented. Nontoxic appearing and in no acute distress. HEENT: Atraumatic, normocephalic, pupils equal and reactive bilaterally, negative for conjunctival pallor or scleral icterus, mucous membranes moist, TMs normal bilaterally, throat clear, neck supple, nontender, trachea midline. No drooling or trismus noted. No meningeal signs. No hot potato voice noted. Lungs: Clear to auscultation, breath sounds equal bilaterally, chest nontender. Heart: S1S2, regular rate and rhythm without overt murmur Abdomen: Soft, nondistended, RUQ tenderness. Negative for masses or hepatosplenomegaly. Negative for costovertebral tenderness. Pelvis: Stable nontender. Genitourinary: Deferred. Rectal: Deferred. Skin: Postoperative incision sites are intact without erythema, drainage or soft tissue swelling. Otherwise skin is intact, warm, dry. No lesions or rashes noted. Extremities: Atraumatic, moves all extremities per self without difficulty or deficits, negative for cords or calf pain. Neurovascular unremarkable. Neuro: Awake, alert, oriented. Cranial nerves II through XII unremarkable. Cerebellum unremarkable. Motor and sensory unremarkable throughout. Exam nonfocal. Notes: AST/ ALT and total bilirubin are elevated. CT shows mild postprocedural fat stranding in the cholecystectomy bed. No loculated fluid collection. Mild dilatation of the common bile duct is likely secondary to reservoir effect. The stomach is fluid-filled. Borderline wall thickening of the antrum. This may be transient. However, in the setting of upper abdominal symptoms mild gastritis is a consideration Dr Ash was consulted on this case, he is agreeable to come and talk with the patient/. 1600: Mihir here to talk with patient about plan of care. Patient will be discharged to home. He would like the patient to call Sunday to Dr. Hubbard' s office, patient will likely have a HIDA scan done on Sunday. I will give prescriptions per Dr. Ash's request to patient. Supportive care measures were reviewed and discussed. Both patient and voice understanding and are agreeable, denies any further questions or concerns at this time. Diagnostics: CBC, CMP, Lipase, UA, CT abdomen/pelvis Therapeutics: IV fluids, Zofran, Dilaudid Prescriptions (per Dr Ash's request): Dilaudid 2mg q4 PRN (#20) Carafate 1 gm po QID (#20) Reglan 10mg QID (#20) Phenergan 25mg q6 PRN (#20) Impression: Post surgical abdominal pain Elevated transaminase Plan: 1. NPO after midnight on Sunday. Call Dr Hubbard's office Sunday morning as they need to call and schedule your HIDA scan for that day. It is not for sure that they can schedule for this on Sunday, but his office will try to get you in. 2. Take your medications as prescribed. 3. Follow the directions that you discussed with Dr Ash. 4. Return to the ED as needed and as discussed. Definitive disposition and diagnosis as appropriate pending reevaluation and review of above. Onset: Today Right Upper Abdomen Pain Score (Numeric/FACES): 9 - Related Data Allergies Allergy/AdvReac Type Severity Reaction Status Date / Time adhesive tape Allergy Blisters Verified 12/14/18 12:59 Sulfa (Sulfonamide Allergy Rash Verified 12/14/18 12:59 Antibiotics) Home Meds: Home Meds ClonazePAM [KlonoPIN] 0.5 mg PO BID PRN 07/10/18 [History] Estrogens, Conjugated [Premarin] 0.625 mg PO DAILY 07/10/18 [History] buPROPion HCl [Wellbutrin Xl] 300 mg PO DAILY 07/10/18 [History] Docusate Sodium 100 mg PO ASDIRECTED 12/04/18 [History] HYDROmorphone [Dilaudid] 0.5 tab PO ASDIRECTED PRN 12/04/18 [History] Levofloxacin 750 mg PO DAILY 12/04/18 [History] Promethazine HCl 25 mg PO ASDIRECTED PRN 12/04/18 [History] Past Medical History HEENT History: Reports: Other (See Below) Other HEENT History: wears glasses Cardiovascular History: Reports: None Respiratory History: Reports: None Gastrointestinal History: Reports: Cholelithiasis Genitourinary History: Reports: None MANNEQUIN MAKER History: Reports: Musculoskeletal History: Reports: None Neurological History: Reports: None Psychiatric History: Reports: Anxiety, Depression, PTSD Endocrine/Metabolic History: Reports: None Hematologic History: Reports: None Immunologic History: Reports: None Oncologic (Cancer) History: Reports: None Dermatologic History: Reports: None - Past Surgical History Head Surgeries/Procedures: Reports: None HEENT Surgical History: Reports: None Cardiovascular Surgical History: Reports: None Respiratory Surgical History: Reports: None GI Surgical History: Reports: None Female Surgical History: Reports: Section, Cervical Cryotherapy, D&C , Dilitation & Evacuation, Hysterectomy, Other (See Below) Other Female Surgeries/Procedures: laparoscopy, hysteroscopy, scar revision Endocrine Surgical History: Reports: None Neurological Surgical History: Reports: None Musculoskeletal Surgical History: Reports: None Oncologic Surgical History: Reports: None Dermatological Surgical History: Reports: None Social & Family History - Family History Family Medical History: Noncontributory ED ROS GENERAL - Review of Systems Review Of Systems: ROS reveals no pertinent complaints other than HPI. ED EXAM, GI/ABD - Physical Exam Exam: See Below (See dictation) Course - Vital Signs Last Recorded V/S: Last Vital Signs Temp 97.4 F 12/14/18 13:00 Pulse 98 12/14/18 15:48 Resp 16 12/14/18 15:48 BP 115/68 12/14/18 15:48 Pulse Ox 95 12/14/18 15:48 - Orders/Labs/Meds Labs: Laboratory Tests 12/14/18 12/14/18 12/14/18 Range/Units 13:15 13:15 13:20 WBC 8.58 (4.0-11.0) K/uL RBC 4.60 (4.30-5.90) M/uL Hgb 14.8 (12.0-16.0) g/dL Hct 42.2 (36.0-46.0) % MCV 91.7 (80.0-98.0) fL MCH 32.2 H (27.0-32.0) pg MCHC 35.1 (31.0-37.0) g/dL RDW Std Deviation 41.0 (28.0-62.0) fl RDW Coeff of Chloe 12 (11.0-15.0) % Plt Count 270 (150-400) K/uL MPV 9.40 (7.40-12.00) fL Neut % (Auto) 72.5 (48.0-80.0) % Lymph % (Auto) 16.3 (16.0-40.0) % [place] % (Auto) 10.3 (0.0-15.0) % Eos % (Auto) 0.6 (0.0-7.0) % Baso % (Auto) 0.3 (0.0-1.5) % Neut # (Auto) 6.2 H (1.4-5.7) K/uL Lymph # (Auto) 1.4 (0.6-2.4) K/uL [place] # (Auto) 0.9 H (0.0-0.8) K/uL Eos # (Auto) 0.1 (0.0-0.7) K/uL Baso # (Auto) 0.0 (0.0-0.1) K/uL Nucleated RBC % 0.0 /100WBC Nucleated RBCs # 0 K/uL Sodium 140 (136-145) mmol/L Potassium 4.0 (3.5-5.1) mmol/L Chloride 103 (98-107) mmol/L Carbon Dioxide 27.6 (21.0-32.0) mmol/L BUN 12 (7.0-18.0) mg/dL Creatinine 0.9 (0.6-1.0) mg/dL Est Cr Clr Drug Dosing 72.53 mL/min Estimated GFR (MDRD) > 60.0 ml/min Glucose 118 H (74-106) mg/dL Calcium 9.6 (8.5-10.1) mg/dL Total Bilirubin 1.9 H (0.2-1.0) mg/dL AST 731 H (15-37) IU/L ALT 593 H (14-63) IU/L Alkaline Phosphatase 220 H (46-116) U/L Total Protein 7.7 (6.4-8.2) g/dL Albumin 3.5 (3.4-5.0) g/dL Globulin 4.2 H (2.6-4.0) g/dL Albumin/Globulin Ratio 0.8 L (0.9-1.6) Lipase 91 (73-393) U/L Urine Color YELLOW Urine Appearance CLEAR Urine pH 8.5 H (5.0-8.0) Ur Specific [place] 1.010 (1.001-1.035) Urine Protein NEGATIVE (NEGATIVE) mg/dL Urine Glucose (UA) NEGATIVE (NEGATIVE) mg/dL Urine Ketones NEGATIVE (NEGATIVE) mg/dL Urine Occult Blood TRACE-INTACT H (NEGATIVE) Urine Nitrite NEGATIVE (NEGATIVE) Urine Bilirubin NEGATIVE (NEGATIVE) Urine Urobilinogen 0.2 (<2.0) EU/dL Ur Leukocyte Esterase NEGATIVE (NEGATIVE) Urine RBC 0-2 (0-2/HPF) Urine WBC 0-2 (0-5/HPF) Ur Epithelial Cells RARE (NONE-FEW) Urine Bacteria RARE (NEGATIVE) Meds: Medications Discontinued Medications Generic Name Dose Route Start Last Admin Trade Name Brianq PRN Reason Stop Dose Admin Hydromorphone HCl 1 mg 12/14/18 13:08 12/14/18 13:27 Dilaudid IVPUSH 12/14/18 13:09 1 mg ONETIME ONE Administration Sodium Chloride 1,000 mls @ 999 mls/hr 12/14/18 13:08 12/14/18 13:23 Normal Saline IV 12/14/18 14:08 999 mls/hr STAT ONE Administration Iopamidol 90 ml 12/14/18 15:05 12/14/18 15:06 Isovue Multipack-370 (76%) IVPUSH 12/14/18 15:06 90 ml ONETIME STA Administration Ondansetron HCl 4 mg 12/14/18 13:08 12/14/18 13:25 Zofran IVPUSH 12/14/18 13:09 4 mg ONETIME ONE Administration Departure - Departure Time of Disposition: 16:25 Disposition: Home, Self-Care 01 Clinical Impression: Postoperative abdominal pain, Elevated transaminase level - Discharge Information Referrals: PCP,Unknown [Primary Care Provider] - Forms: ED Department Discharge Additional Instructions: The following information is given to patients seen in the emergency department who are being discharged to home. This information is to outline your options for follow-up care. We provide all patients seen in our emergency department with a follow-up referral. The need for follow-up, as well as the timing and circumstances, are variable depending upon the specifics of your emergency department visit. If you don't have a primary care physician on staff, we will provide you with a referral. We always advise you to contact your personal physician following an emergency department visit to inform them of the circumstance of the visit and for follow-up with them and/or the need for any referrals to a consulting specialist. The emergency department will also refer you to a specialist when appropriate. This referral assures that you have the opportunity for follow-up care with a specialist. All of these measure are taken in an effort to provide you with optimal care, which includes your follow-up. Under all circumstances we always encourage you to contact your private physician who remains a resource for coordinating your care. When calling for follow-up care, please make the office aware that this follow-up is from your recent emergency room visit. If for any reason you are refused follow-up, please contact the [facility] Emergency Department at and asked to speak to the emergency department charge nurse. [facility] [address] [place] [id number] [facility] - General Surgery Professional Building [address] [place] [address], [address] [place] [address] 1. NPO after midnight on Sunday. Call Dr Hubbard's office Sunday morning as they need to call and schedule your HIDA scan for that day. It is not for sure that they can schedule for this on Sunday, but his office will try to get you in. 2. Take your medications as prescribed. 3. Follow the directions that you discussed with Dr Ash. 4. Return to the ED as needed and as discussed.
[2018-12-14] MEDS ORDERED: HYDROmorphone 1 MG/ML Syringe IVPUSH ONE (13:08)
[2018-12-14] MEDS ORDERED: Sodium Chloride 0.9% 1,000 ML IV ONE (13:08)
[2018-12-14] MEDS ORDERED: Ondansetron 4 MG/2 ML SDV IVPUSH ONE (13:08)
[2018-12-14 14:14] LABS: CHLORIDE,CL 103 mmol/L (98-107); SODIUM,NA 140 mmol/L (136-145)
[2018-12-14] MEDS ORDERED: Iopamidol 755 MG/ML 500 ML Multipack Bottle IVPUSH STA (15:05)
--- NOTE | 2018-12-14 15:25 | CT ---
INDICATION: Upper abdominal and back pain with nausea. Cholecystectomy 12/05/2018. TECHNIQUE: CT abdomen and pelvis acquired with IV contrast. COMPARISON: CT 09/14/2018 FINDINGS: Lower chest: Unremarkable. Liver: Unremarkable. Spleen: Unremarkable. Pancreas: Unremarkable. Gallbladder and bile ducts: There is mild postprocedural fat stranding in the cholecystectomy bed. No loculated fluid collection. Common bile duct is mildly dilated measuring 9-10 mm. Kidneys: Unremarkable. Adrenal glands: Unremarkable. GI tract: Minimal colonic diverticulosis. Appendix is normal. The stomach is fluid-filled. Borderline wall thickening of the antrum (image 59). No small bowel obstruction. Vascular structures: No sign of aneurysm. Lymph nodes: Unremarkable. Miscellaneous: No free intraperitoneal gas. Trace fluid in the pelvis is likely physiologic. Pelvic Organs: The bladder is nondistended, limiting evaluation. It appears grossly normal. Hysterectomy. No adnexal mass. Bones: No acute abnormality. No suspicious bone lesion. IMPRESSION: 1. Mild postprocedural fat stranding in the cholecystectomy bed. No loculated fluid collection. Mild dilatation of the common bile duct is likely secondary to reservoir effect. 2. The stomach is fluid-filled. Borderline wall thickening of the antrum. This may be transient. However, in the setting of upper abdominal symptoms mild gastritis is a consideration. Dictated by Jeffrey Hurtado MD @ 12/14/2018 3:24:07 PM Please note that all CT scans at this facility use dose modulation, iterative reconstruction, and/or weight-based dosing when appropriate to reduce radiation dose to as low as reasonably achievable. Dictated by: Jeffrey Hurtado MD @ 12/14/2018 15:24:12 (Electronically Signed)
--- NOTE | 2018-12-14 16:55 | PCM.SN ---
- Free Text/Narrative Note: Patient is a 43 y/o female who presented to the ER today with increasing RUQ pain, nausea and vomiting. She had a laparoscopic cholecystectomy on 12/[address] Hubbard. The pathology report revealed cholelithiasis with chronic cholecystitis. She states she had been doing well. Her last 3-4 days and had not required any pain medication or Phenergan. Today she had increasing right upper quadrant pain with back pain. She states this was quite similar to the discomfort she was experiencing prior to her cholecystectomy. CONSTITUTIONAL: No chronic fever, chills, night sweats, or unexplained weight loss. HEENT: No history of headaches, sore throats, earaches, or ear infections. No visual or hearing difficulties. BREASTS: No history of abnormal mammogram, fibrocystic breast disease, nipple discharge or previous biopsy. CARDIOVASCULAR: No chest pain, irregular heartbeat, or history of myocardial infarction. RESPIRATORY: No shortness of breath, wheezing or hemoptysis. GASTROINTESTINAL: No particular food intolerances. No change in bowel habits. No history of blood in the stool. GENITOURINARY: No bladder or kidney stones or infections. No history of endometriosis, ovarian cysts or pelvic inflammatory disease. MUSCULOSKELETAL: No chronic joint problems. No recent trauma. INTEGUMENTARY: No chronic skin problems. NEUROLOGICAL: No seizures or strokes. No history of numbness, weakness, or balance issues. PSYCHIATRIC: History of anxiety. ENDOCRINE: No history of diabetes or thyroid dysfunction. HEMATOLOGIC: No history of blood clots or unusual bleeding. ALL OTHERS NEGATIVE REVIEWED BY ME. HEENT: Pupils equal, round, react light and accommodation. No scleral icterus. CARDIORESPIRATORY: Lungs are clear to auscultation bilaterally. Heart regular rate and rhythm without murmurs, rubs or bruits. ABDOMEN: Soft, nontender with hypoactive bowel sounds. Incisions are healing well. No erythema, induration or inflammation. CT scan report has been reviewed and suggests some fluid in the area of the gallbladder. This would not be unusual given her recent cholecystectomy. There is slight dilatation of the bile ducts. Additionally, her bilirubin is mildly elevated at 1.9. She also has elevated liver function tests. IMPRESSION: Post cholecystectomy abdominal pain with elevated bilirubin and elevated LFTs. This could represent a bile radicle leak. I would recommend that we get a hepatobiliary scan on Sunday to look for a bile duct leak. If indeed that is the case, she will need ERCP and stent placement. Over the weekend if she continues to have pain, nausea and vomiting she will require readmission to the hospital. We are going to start her on metoclopramide 10 mg every 6 hours, Carafate 1 g 4 times a day, Phenergan 25 mg every 6-8 hours as needed for nausea and the lighted 2 mg by mouth every 6 hours as needed for pain.
== END 2018-12-14 16:42 | disposition home or self-care (01) ==
LOC: MW.ED 12:46
DX: G89.18 Other acute postprocedural pain (principal); R10.11 Right upper quadrant pain; R74.0 Nonspecific elevation of levels of transaminase and lactic acid dehydrogenase [LDH]; Z88.8 Allergy status to other drugs, medicaments and biological substances; Z88.2 Allergy status to sulfonamides; Z91.048 Other nonmedicinal substance allergy status; Z79.899 Other long term (current) drug therapy; Z90.49 Acquired absence of other specified parts of digestive tract
CPT/HCPCS: 74177; 80053; 81001; 83690; 85025; 96361; 96374; 96375; 99284; J1170; J2405; J7040; Q9967

== ENCOUNTER 2020-07-31 11:54 | Emergency (ER) | payer SELFPAY ==
[2020-07-31] MEDS ORDERED: Sodium Chloride 0.9% 1,000 ML IV ONE ×2 (12:29→13:13)
[2020-07-31] MEDS ORDERED: Ondansetron 4 MG/2 ML SDV IVPUSH ONE (12:30)
--- NOTE | 2020-07-31 12:31 | EDM.PDOC ---
ED HPI GENERAL MEDICAL PROBLEM - General Chief Complaint: Respiratory Problem Stated Complaint: SORE THROAT LIGHT HEADED Time Seen by Provider: 07/31/20 11:58 Source of Information: Reports: Patient History Limitations: Reports: No Limitations - History of Present Illness INITIAL COMMENTS - FREE TEXT/NARRATIVE: HISTORY AND PHYSICAL: History of present illness: Patient is a 45-year-old female who presents to the emergency room with complaints of generally feeling unwell, intermittent nausea/vomiting, and cough x 4 weeks. Approximately 2-3 weeks ago she was tested for COVID-19, she was negative. She has see Dr. Dominguez at [facility] a few times for these complaints. Approximately a week ago completed a course of steroids and did not feel improvement, so Dr. Dominguez put her on Augmentin (has been taking for about 1 week). Over the past 3 days she has had a fatigue, sore throat and today had the sensation that her tongue was swelling. She states this lasted approx imately 30 minutes and resolved on its own. 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 Upon arrival she is ambulatory, breathes easily, no evidence of respiratory distress/difficulty. states she came in because felt lightheaded from her "nonstop coughing" and her made her. Patient denies any fever, headache, change in vision, syncope or near syncope. Denies any chest pain, back pain, abdominal pain, diarrhea, constipation or dysuria. No concerns for . Has not noted any blood in urine or stool. Patient has been eating and drinking appropriately (but has intermittent vomiting). Review of systems: As per history of present illness and below otherwise all systems reviewed and negative. Past medical history: As per history of present illness and as reviewed below otherwise noncontributory. Surgical history: As per history of present illness and as reviewed below otherwise noncontributory. Social history: See social history for further information Family history: As per history of present illness and as reviewed below otherwise noncontributory. Physical exam: General: Well developed and well nourished. Alert and orientated x 3. Nontoxic in appearance and in no acute distress. Vital signs are stable and have been reviewed by me. Nursing notes were reviewed. HEENT: Atraumatic, normocephalic, pupils equal and reactive bilaterally, negative for conjunctival pallor or scleral icterus, mucous membranes moist, no tongue swelling, she does have some redness to the posterior oropharynx without exudate or pillar shifting/fullness. TMs normal bilaterally, neck supple, no lymphadenopathy, neck is nontender, trachea midline. No drooling or trismus noted. No meningeal signs. No hot potato voice noted. Lungs: Clear to auscultation, breath sounds equal bilaterally, chest nontender. Normal work of breathing, no accessory muscles used. Dry nonproductive cough noted. Heart: S1S2, regular rate and rhythm without overt murmur Abdomen: Soft, nondistended, nontender. Negative for masses orcostovertebral tenderness. Skin: Intact, warm, dry. No lesions or rashes noted. Hematologic: No petechiae or purpra. Mucosa appropriate color and normal nail bed color and refill. Extremities: Atraumatic, moves all extremities per self without difficulty or deficits, negative for cords or calf pain. Neurovascular unremarkable. Neuro: Awake, alert, oriented. Cranial nerves II through XII unremarkable. Cerebellum unremarkable. Motor and sensory unremarkable throughout. Exam nonfocal. Psychiatric: Mood and affect are appropriate. Normal thought process. Answering questions appropriately. Notes: Patient has multiple vague complaints; she states she has not had any x-ray or lab work done as of yet. She is agreeable to diagnostics and imagining. Diagnostics are unremarkable. BC results pending. I have talked with the patient about today's findings, in addition to providing specific details for plan of care. VSS. Discussed with patient the option of stopping her Augmentin if she felt that she had airway compromise (only new exposure) although I feel this is less likely due to her having taken this medication for a week already and resolved on its own within 30 minutes without intervention. I also offered her an epi-pen prescription which she declines. Reassessment at the time of dis position demonstrates that the patient is in no acute distress. The patient is stable for discharge, counseling was provided and we discussed in great detail signs and symptoms that would prompt them to return to the Emergency Department. Medication, follow up and supportive care measures were reviewed and discussed. Voices understanding and is agreeable to plan of care. Denies any further questi ons or concerns at this time. Diagnostics: CBC, CMP, Troponin, D.Dimer, COVID, Influenza, [place], UA, lactate, blood cultures Therapeutics: IV fluid, Zofran, Phenergan w/ codeine Prescription: Tessalone Whitley and zofran Impression: Viral Upper Respiratory Illness Plan: 1. Today your basic lab work, COVID, influenza, strep throat, chest x-ray, mononucleousis, urine test were within normal limits. Unfortunately there is no clear reason for why you are having the symptoms you are having. You can stop your Augmentin and talk to Dr Dominguez on Sunday to see if there is a different medication suggestion for your throat pain. If your symptoms should worsen, new symptoms develop or any of the signs and symptoms we discussed should arise please return to the emergency room or call 911 (if needed). 2. Increase your fluids. Alternate Tylenol and/or Ibuprofen as needed for pain/fever management. Warm Salt water gargles (rinse and spit) 3-4 x daily. 3. Tessalone Pearls can be take three times a day to help with your cough. 4. We encourage you to follow up with your primary care provider and/or recommended specialist in the next few days for re-evaluation and further care/management. Definitive disposition and diagnosis as appropriate pending reevaluation and review of above. throat Pain Score (Numeric/FACES): 8 bodyaches Pain Score (Numeric/FACES): 8 - Related Data Allergies Allergy/AdvReac Type Severity Reaction Status Date / Time adhesive tape Allergy Blisters Verified 07/31/20 13:21 Sulfa (Sulfonamide Allergy Rash Verified 07/31/20 13:21 Antibiotics) Home Meds: Home Meds ClonazePAM [KlonoPIN] 0.5 mg PO BID PRN 07/10/18 [History] Estrogens, Conjugated [Premarin] 0.625 mg PO DAILY 07/10/18 [History] ALPRAZolam [Xanax] 1 mg PO BEDTIME 07/31/20 [History] Benzonatate [Tessalon Perle] 100 mg PO TID PRN #20 capsule 07/31/20 [Rx] Ondansetron [Zofran ODT] 4 mg PO Q6H PRN #8 tab.dis 07/31/20 [Rx] Past Medical History HEENT History: Reports: Other (See Below) Other HEENT History: wears glasses Cardiovascular History: Reports: None Respiratory History: Reports: None Gastrointestinal History: Reports: Cholelithiasis Genitourinary History: Reports: None 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: Musculoskeletal History: Reports: None Neurological History: Reports: None Psychiatric History: Reports: Anxiety, Depression, PTSD Endocrine/Metabolic History: Reports: None Hematologic History: Reports: None Immunologic History: Reports: None Oncologic (Cancer) History: Reports: None Dermatologic History: Reports: None - Past Surgical History Head Surgeries/Procedures: Reports: None HEENT Surgical History: Reports: None Cardiovascular Surgical History: Reports: None Respiratory Surgical History: Reports: None GI Surgical History: Reports: None Female Surgical History: Reports: Section, Cervical Cryotherapy, D&C, Dilitation & Evacuation, Hysterectomy, Other (See Below) Other Female Surgeries/Procedures: laparoscopy, hysteroscopy, scar revision Endocrine Surgical History: Reports: None Neurological Surgical History: Reports: None Musculoskeletal Surgical History: Reports: None Oncologic Surgical History: Reports: None Dermatological Surgical History: Reports: None Social & Family History - Family History Family Medical History: No Pertinent Family History - Caffeine Use Caffeine Use: Reports: None ED ROS GENERAL - Review of Systems Review Of Systems: Comprehensive ROS is negative, except as noted in HPI. ED EXAM, GENERAL - Physical Exam Exam: See Below (See dictation) Course - Vital Signs Last Recorded V/S: Last Vital Signs Temp 97.2 F 07/31/20 12:08 Pulse 92 07/31/20 14:25 Resp 17 07/31/20 14:25 BP 121/77 07/31/20 14:25 Pulse Ox 100 07/31/20 14:25 - Orders/Labs/Meds Orders: Active Orders 24 hr Category Date Time Status CULTURE BLOOD [BC] Stat Lab 07/31/20 13:25 Received CULTURE BLOOD [BC] Stat Lab 07/31/20 13:32 Received CULTURE STREP A CONFIRMATION [RM] Stat Lab 07/31/20 12:55 Results CULTURE URINE [RM] Stat Lab 07/31/20 12:48 Received STREP SCRN A RAPID W CULT CONF [RM] Stat Lab 07/31/20 12:55 Results Blood Culture x2 Reflex Set [OM.PC] Stat Oth 07/31/20 13:13 Ordered Labs: Laboratory Tests 07/31/20 07/31/20 07/31/20 Range/Units 12:48 12:48 12:50 WBC (4.0-11.0) K/uL RBC (4.30-5.90) M/uL Hgb (12.0-16.0) g/dL Hct (36.0-46.0) % MCV (80.0-98.0) fL MCH (27.0-32.0) pg MCHC (31.0-37.0) g/dL RDW Std Deviation (28.0-62.0) fl RDW Coeff of Chloe (11.0-15.0) % Plt Count (150-400) K/uL MPV (7.40-12.00) fL Neut % (Auto) (48.0-80.0) % Lymph % (Auto) (16.0-40.0) % [place] % (Auto) (0.0-15.0) % Eos % (Auto) (0.0-7.0) % Baso % (Auto) (0.0-1.5) % Neut # (Auto) (1.4-5.7) K/uL Lymph # (Auto) (0.6-2.4) K/uL [place] # (Auto) (0.0-0.8) K/uL Eos # (Auto) (0.0-0.7) K/uL Baso # (Auto) (0.0-0.1) K/uL Nucleated RBC % /100WBC Nucleated RBCs # K/uL D-Dimer, Quantitative (0.0-0.50) mg/L FEU Lactate 1.8 (0.20-2.00) mmol/L Sodium (136-145) mmol/L Potassium (3.5-5.1) mmol/L Chloride (98-107) mmol/L Carbon Dioxide (21.0-32.0) mmol/L BUN (7.0-18.0) mg/dL Creatinine (0.6-1.0) mg/dL Est Cr Clr Drug Dosing mL/min Estimated GFR (MDRD) ml/min Glucose (74-106) mg/dL Calcium (8.5-10.1) mg/dL Total Bilirubin (0.2-1.0) mg/dL AST (15-37) IU/L ALT (14-63) IU/L Alkaline Phosphatase (46-116) U/L Troponin I (0.000-0.056) ng/mL Total Protein (6.4-8.2) g/dL Albumin (3.4-5.0) g/dL Globulin (2.6-4.0) g/dL Albumin/Globulin Ratio (0.9-1.6) Urine Color YELLOW Urine Appearance CLEAR Urine pH 7.5 (5.0-8.0) Ur Specific [place] 1.015 (1.001-1.035) Urine Protein NEGATIVE (NEGATIVE) mg/dL Urine Glucose (UA) NEGATIVE (NEGATIVE) mg/dL Urine Ketones NEGATIVE (NEGATIVE) mg/dL Urine Occult Blood TRACE-INTACT H (NEGATIVE) Urine Nitrite NEGATIVE (NEGATIVE) Urine Bilirubin NEGATIVE (NEGATIVE) Urine Urobilinogen 0.2 (<2.0) EU/dL Ur Leukocyte Esterase TRACE H (NEGATIVE) Urine RBC 1-2 (0-2/HPF) Urine WBC 0-1 (0-5/HPF) Ur Epithelial Cells OCCASIONAL (NONE-FEW) Urine Bacteria RARE (NEGATIVE) Urine HCG, Qual NEGATIVE (NEGATIVE) Monoscreen (NEG) Influenza Type A RNA (NEGATIVE) Influenza Type B RNA (NEGATIVE) SARS-CoV-2 RNA (NINA) (NEGATIVE) 07/31/20 07/31/20 07/31/20 Range/Units 12:55 13:16 13:16 WBC 9.58 (4.0-11.0) K/uL RBC 4.56 (4.30-5.90) M/uL Hgb 14.4 (12.0-16.0) g/dL Hct 43.9 (36.0-46.0) % MCV 96.3 (80.0-98.0) fL MCH 31.6 (27.0-32.0) pg MCHC 32.8 (31.0-37.0) g/dL RDW Std Deviation 46.8 (28.0-62.0) fl RDW Coeff of Chloe 13 (11.0-15.0) % Plt Count 243 (150-400) K/uL MPV 9.10 (7.40-12.00) fL Neut % (Auto) 68.7 (48.0-80.0) % Lymph % (Auto) 21.9 (16.0-40.0) % [place] % (Auto) 7.4 (0.0-15.0) % Eos % (Auto) 1.8 (0.0-7.0) % Baso % (Auto) 0.2 (0.0-1.5) % Neut # (Auto) 6.6 H (1.4-5.7) K/uL Lymph # (Auto) 2.1 (0.6-2.4) K/uL [place] # (Auto) 0.7 (0.0-0.8) K/uL Eos # (Auto) 0.2 (0.0-0.7) K/uL Baso # (Auto) 0.0 (0.0-0.1) K/uL Nucleated RBC % 0.0 /100WBC Nucleated RBCs # 0 K/uL D-Dimer, Quantitative (0.0-0.50) mg/L FEU Lactate (0.20-2.00) mmol/L Sodium 138 (136-145) mmol/L Potassium 3.5 (3.5-5.1) mmol/L Chloride 103 (98-107) mmol/L Carbon Dioxide 30.1 (21.0-32.0) mmol/L BUN 8 (7.0-18.0) mg/dL Creatinine 0.9 (0.6-1.0) mg/dL Est Cr Clr Drug Dosing 71.03 mL/min Estimated GFR (MDRD) > 60.0 ml/min Glucose 126 H (74-106) mg/dL Calcium 8.4 L (8.5-10.1) mg/dL Total Bilirubin 0.2 (0.2-1.0) mg/dL AST 27 (15-37) IU/L ALT 60 (14-63) IU/L Alkaline Phosphatase 64 (46-116) U/L Troponin I < 0.050 (0.000-0.056) ng/mL Total Protein 6.2 L (6.4-8.2) g/dL Albumin 2.9 L (3.4-5.0) g/dL Globulin 3.3 (2.6-4.0) g/dL Albumin/Globulin Ratio 0.9 (0.9-1.6) Urine Color Urine Appearance Urine pH (5.0-8.0) Ur Specific [place] (1.001-1.035) Urine Protein (NEGATIVE) mg/dL Urine Glucose (UA) (NEGATIVE) mg/dL Urine Ketones (NEGATIVE) mg/dL Urine Occult Blood (NEGATIVE) Urine Nitrite (NEGATIVE) Urine Bilirubin (NEGATIVE) Urine Urobilinogen (<2.0) EU/dL Ur Leukocyte Esterase (NEGATIVE) Urine RBC (0-2/HPF) Urine WBC (0-5/HPF) Ur Epithelial Cells (NONE-FEW) Urine Bacteria (NEGATIVE) Urine HCG, Qual (NEGATIVE) Monoscreen (NEG) Influenza Type A RNA NEGATIVE (NEGATIVE) Influenza Type B RNA NEGATIVE (NEGATIVE) SARS-CoV-2 RNA (NINA) NEGATIVE (NEGATIVE) 07/31/20 07/31/20 Range/Units 13:16 13:16 WBC (4.0-11.0) K/uL RBC (4.30-5.90) M/uL Hgb (12.0-16.0) g/dL Hct (36.0-46.0) % MCV (80.0-98.0) fL MCH (27.0-32.0) pg MCHC (31.0-37.0) g/dL RDW Std Deviation (28.0-62.0) fl RDW Coeff of Chloe (11.0-15.0) % Plt Count (150-400) K/uL MPV (7.40-12.00) fL Neut % (Auto) (48.0-80.0) % Lymph % (Auto) (16.0-40.0) % [place] % (Auto) (0.0-15.0) % Eos % (Auto) (0.0-7.0) % Baso % (Auto) (0.0-1.5) % Neut # (Auto) (1.4-5.7) K/uL Lymph # (Auto) (0.6-2.4) K/uL [place] # (Auto) (0.0-0.8) K/uL Eos # (Auto) (0.0-0.7) K/uL Baso # (Auto) (0.0-0.1) K/uL Nucleated RBC % /100WBC Nucleated RBCs # K/uL D-Dimer, Quantitative 0.38 (0.0-0.50) mg/L FEU Lactate (0.20-2.00) mmol/L Sodium (136-145) mmol/L Potassium (3.5-5.1) mmol/L Chloride (98-107) mmol/L Carbon Dioxide (21.0-32.0) mmol/L BUN (7.0-18.0) mg/dL Creatinine (0.6-1.0) mg/dL Est Cr Clr Drug Dosing mL/min Estimated GFR (MDRD) ml/min Glucose (74-106) mg/dL Calcium (8.5-10.1) mg/dL Total Bilirubin (0.2-1.0) mg/dL AST (15-37) IU/L ALT (14-63) IU/L Alkaline Phosphatase (46-116) U/L Troponin I (0.000-0.056) ng/mL Total Protein (6.4-8.2) g/dL Albumin (3.4-5.0) g/dL Globulin (2.6-4.0) g/dL Albumin/Globulin Ratio (0.9-1.6) Urine Color Urine Appearance Urine pH (5.0-8.0) Ur Specific [place] (1.001-1.035) Urine Protein (NEGATIVE) mg/dL Urine Glucose (UA) (NEGATIVE) mg/dL Urine Ketones (NEGATIVE) mg/dL Urine Occult Blood (NEGATIVE) Urine Nitrite (NEGATIVE) Urine Bilirubin (NEGATIVE) Urine Urobilinogen (<2.0) EU/dL Ur Leukocyte Esterase (NEGATIVE) Urine RBC (0-2/HPF) Urine WBC (0-5/HPF) Ur Epithelial Cells (NONE-FEW) Urine Bacteria (NEGATIVE) Urine HCG, Qual (NEGATIVE) Monoscreen NEGATIVE (NEG) Influenza Type A RNA (NEGATIVE) Influenza Type B RNA (NEGATIVE) SARS-CoV-2 RNA (NINA) (NEGATIVE) Meds: Medications Discontinued Medications Generic Name Dose Route Start Last Admin Trade Name Freq PRN Reason Stop Dose Admin Sodium Chloride 1,000 mls @ 999 mls/hr 07/31/20 12:29 07/31/20 12:59 Normal Saline IV 07/31/20 13:29 999 mls/hr STAT ONE Administration Sodium Chloride 1,000 mls @ 999 mls/hr 07/31/20 13:13 07/31/20 14:24 Normal Saline IV 07/31/20 14:13 999 mls/hr STAT ONE Administration Ondansetron HCl 4 mg 07/31/20 12:30 07/31/20 13:04 Zofran IVPUSH 07/31/20 12:31 4 mg ONETIME ONE Administration Promethazine HCl/Codeine 5 ml 07/31/20 13:47 07/31/20 14:26 Phenergan With Codeine PO 07/31/20 13:48 5 ml NOW STA Administration Departure - Departure Time of Disposition: 15:20 Disposition: Home, Self-Care 01 Clinical Impression: Viral upper respiratory illness - Discharge Information Prescriptions: Benzonatate [Tessalon Perle] 100 mg PO TID PRN #20 capsule PRN Reason: Cough Ondansetron [Zofran ODT] 4 mg PO Q6H PRN #8 tab.dis PRN Reason: Nausea Instructions: Viral Respiratory Infection, [id number] Referrals: Con Dominguez MD [Primary Care Provider] - Forms: ED Department Discharge Additional Instructions: The following information is given to patients seen in the emergency department who are being discharged to home. This information is to outline your options for follow-up care. We provide all patients seen in our emergency department with a follow-up referral. The need for follow-up, as well as the timing and circumstances, are variable depending upon the specifics of your emergency department visit. If you don't have a primary care physician on staff, we will provide you with a referral. We always advise you to contact your personal physician following an emergency department visit to inform them of the circumstance of the visit and for follow-up with them and/or the need for any referrals to a consulting specialist. The emergency department will also refer you to a specialist when appropriate. This referral assures that you have the opportunity for follow-up care with a specialist. All of these measure are taken in an effort to provide you with optimal care, which includes your follow-up. Under all circumstances we always encourage you to contact your private physician who remains a resource for coordinating your care. When calling for follow-up care, please make the office aware that this follow-up is from your recent emergency room visit. If for any reason you are refused follow-up, please contact the [facility] Emergency Department at and asked to speak to the emergency department charge nurse. [facility] [address] [place] [address] [facility] [address] [place] [id number] Thank you for choosing the [facility] emergency department in [place] for your medical needs today. It was a pleasure caring for you. Today you were seen in the emergency department for upper respiratory illness. 1. Today your basic lab work, COVID, influenza, strep throat, chest x-ray, mononucleousis, urine test were within normal limits. Unfortunately there is no clear reason for why you are having the symptoms you are having. You can stop your Augmentin and talk to Dr Dominguez on Sunday to see if there is a different medication suggestion for your throat pain. If your symptoms should worsen, new symptoms develop or any of the signs and symptoms we discussed should arise please return to the emergency room or call 911 (if needed). 2. Increase your fluids. Alternate Tylenol and/or Ibuprofen as needed for pain/fever management. Warm Salt water gargles (rinse and spit) 3-4 x daily. 3. Tessalone Pearls can be take three times a day to help with your cough. Zofran as needed for nausea. 4. We encourage you to follow up with your primary care provider and/or recommended specialist in the next few days for re-evaluation and further care/management. Sepsis Event Note (ED) - Focused Exam Vital Signs: Vital Signs Temp Pulse Resp BP Pulse Ox 07/31/20 14:25 92 17 121/77 100 07/31/20 13:20 91 17 126/71 100 07/31/20 12:08 97.2 F 114 H 17 142/95 H 99 - My Orders Last 24 Hours: My Active Orders 07/31/20 12:48 CULTURE URINE [RM] Stat 07/31/20 12:55 CULTURE STREP A CONFIRMATION [RM] Stat STREP SCRN A RAPID W CULT CONF [RM] Stat 07/31/20 13:13 Blood Culture x2 Reflex Set [OM.PC] Stat 07/31/20 13:25 CULTURE BLOOD [BC] Stat 07/31/20 13:32 CULTURE BLOOD [BC] Stat - Assessment/Plan Last 24 Hours: My Active Orders 07/31/20 12:48 CULTURE URINE [RM] Stat 07/31/20 12:55 CULTURE STREP A CONFIRMATION [RM] Stat STREP SCRN A RAPID W CULT CONF [RM] Stat 07/31/20 13:13 Blood Culture x2 Reflex Set [OM.PC] Stat 07/31/20 13:25 CULTURE BLOOD [BC] Stat 07/31/20 13:32 CULTURE BLOOD [BC] Stat
[2020-07-31 13:46] LABS: BLOOD UREA NITROGEN,BUN 8 mg/dL (7.0-18.0); CARBON DIOXIDE,CO2 30.1 mmol/L (21.0-32.0); CHLORIDE,CL 103 mmol/L (98-107); GLUCOSE RANDOM 126 mg/dL (74-106); POTASSIUM,K 3.5 mmol/L (3.5-5.1); SODIUM,NA 138 mmol/L (136-145)
[2020-07-31] MEDS ORDERED: Codeine/Promethazine 10-6.25 MG/5 ML Syrup 5 ML UD Cup PO STA (13:47)
[2020-07-31 13:49] LABS: CORONAVIRUS COVID-19 NAA NEGATIVE (NEGATIVE); INFLUENZA A NAA NEGATIVE (NEGATIVE); INFLUENZA B NAA NEGATIVE (NEGATIVE)
--- NOTE | 2020-07-31 14:21 | CR ---
Indication: Cough. Technique: PA and lateral views the chest. Comparison: None Findings: The heart is normal in size. The lungs are clear. No infiltrate, pleural effusion, pneumothorax is identified. Impression: No acute cardiopulmonary process Dictated by Oralia Aceves MD @ Jul 31 2020 2:18PM Signed by Dr. Oralia Aceves @ Jul 31 2020 2:19PM
== END 2020-07-31 15:57 | disposition home or self-care (01) ==
LOC: MW.ED 11:54
DX: J06.9 Acute upper respiratory infection, unspecified (principal); Z20.828 Contact with and (suspected) exposure to other viral communicable diseases; F41.9 Anxiety disorder, unspecified; F32.9 Major depressive disorder, single episode, unspecified; Z88.2 Allergy status to sulfonamides; Z91.09 Other allergy status, other than to drugs and biological substances; Z79.899 Other long term (current) drug therapy
CPT/HCPCS: 0240U; 36415; 71046; 80053; 81001; 81025; 83605; 84484; 85025; 85379; 86308; 87040; 87081; 87086; 87880; 96374; 99284; A9270; J2405; J7030; 99283

== ENCOUNTER 2022-10-19 20:01 | Emergency (ER) | payer BC, OTHER ==
[2022-10-19] MEDS ORDERED: Sodium Chloride 0.9% 20 ML SDV IV PRN (20:03)
[2022-10-19] MEDS ORDERED: Sodium Chloride 0.9% 10 ML Syringe FLUSH PRN (20:03)
[2022-10-19] MEDS ORDERED: Sodium Chloride 0.9% 2.5 ML Syringe FLUSH PRN (20:03)
[2022-10-19 20:43] LABS: CARBON DIOXIDE,CO2 25.5 mmol/L (21.0-32.0); POTASSIUM,K 3.7 mmol/L (3.5-5.1)
[2022-10-19] MEDS ORDERED: Iopamidol 755 MG/ML 500 ML Multipack Bottle IVPUSH STA (22:12)
[2022-10-19] MEDS ORDERED: INFUSION IV STA (23:04)
[2022-10-19] MEDS ORDERED: ALTEPLASE IV STA ×2 (23:04→23:11)
[2022-10-20 00:10] LABS: CORONAVIRUS COVID-19 NAA NEGATIVE (NEGATIVE); INFLUENZA A NAA NEGATIVE (NEGATIVE); INFLUENZA B NAA NEGATIVE (NEGATIVE)
== END 2022-10-19 23:50 ==
LOC: MW.ED 20:01
DX: R53.1 Weakness (principal); Z88.2 Allergy status to sulfonamides; Z91.048 Other nonmedicinal substance allergy status; Z20.822 Contact with and (suspected) exposure to COVID-19
CPT/HCPCS: 0240U; 36415; 70450; 70496; 70498; 71045; 80053; 81001; 84484; 85025; 85610; 85730; 93005; 96365; 96376; 99285; J2997; J3490; Q9967

== ENCOUNTER 2023-03-30 10:05 | Emergency (ER) | payer BC ==
[2023-03-30 11:17] LABS: BASOPHILS PERCENT AUTO 0.5 % (0.0-1.5); EOSINOPHILS ABSOLUTE AUTO 0.1 K/uL (0.0-0.7); EOSINOPHILS PERCENT AUTO 1.5 % (0.0-7.0); HEMATOCRIT 44.6 % (36.0-46.0); HEMOGLOBIN 15.5 g/dL (12.0-16.0); LYMPHOCYTES ABSOLUTE AUTO 1.9 K/uL (0.6-2.4); MEAN CORPUSCULAR HEMOGLOBIN 31.7 pg (27.0-32.0); MEAN CORPUSCULAR HGB CONC 34.8 g/dL (31.0-37.0); MEAN CORPUSCULAR VOLUME 91.2 fL (80.0-98.0); MONOCYTES ABSOLUTE AUTO 0.4 K/uL (0.0-0.8); MONOCYTES PERCENT AUTO 7.3 % (0.0-15.0); NEUTROPHILS ABSOLUTE AUTO 3.5 K/uL (1.4-5.7); NEUTROPHILS PERCENT AUTO 58.7 % (48.0-80.0); NRBC ABSOLUTE 0 K/uL; PLATELET COUNT,PLT 293 K/uL (150-400); RED BLOOD CELL COUNT 4.89 M/uL (4.30-5.90)
[2023-03-30 11:33] LABS: A/G RATIO 0.8 (0.9-1.6); ALBUMIN 3.7 g/dL (3.4-5.0); BILIRUBIN TOTAL 0.3 mg/dL (0.2-1.0); CALCIUM 9.2 mg/dL (8.5-10.1); CREATININE 0.8 mg/dL (0.6-1.0); EST CRCL DRUG DOSING (CG) 80.51 mL/min; POTASSIUM,K 3.3 mmol/L (3.5-5.1); PROTEIN TOTAL,TP 8.2 g/dL (6.4-8.2); TSH ULTRASENSITIVE 2.91 uIU/mL (0.36-3.74)
[2023-03-30] MEDS ORDERED: Iopamidol 755 Mg/ML 100 ML Bottle IVPUSH ONE (11:54)
== END 2023-03-30 13:03 | disposition home or self-care (01) ==
LOC: MW.ED 10:05
DX: R29.810 Facial weakness (principal); Z91.048 Other nonmedicinal substance allergy status; Z88.2 Allergy status to sulfonamides
CPT/HCPCS: 36415; 70450; 70496; 70498; 80053; 84443; 85025; 99284; Q9967; 93010

== ENCOUNTER 2023-05-10 15:42 | Emergency (ER) | payer BC ==
[2023-05-10 16:07] LABS: BASOPHILS PERCENT AUTO 0.2 % (0.0-1.5); EOSINOPHILS ABSOLUTE AUTO 0.2 K/uL (0.0-0.7); EOSINOPHILS PERCENT AUTO 1.8 % (0.0-7.0); HEMATOCRIT 47.1 % (36.0-46.0); HEMOGLOBIN 16.1 g/dL (12.0-16.0); LYMPHOCYTES ABSOLUTE AUTO 2.8 K/uL (0.6-2.4); LYMPHOCYTES PERCENT AUTO 21.5 % (16.0-40.0); MEAN CORPUSCULAR HEMOGLOBIN 31.3 pg (27.0-32.0); MEAN CORPUSCULAR HGB CONC 34.2 g/dL (31.0-37.0); MEAN CORPUSCULAR VOLUME 91.5 fL (80.0-98.0); MONOCYTES ABSOLUTE AUTO 0.9 K/uL (0.0-0.8); MONOCYTES PERCENT AUTO 6.7 % (0.0-15.0); NEUTROPHILS ABSOLUTE AUTO 9.1 K/uL (1.4-5.7); NEUTROPHILS PERCENT AUTO 69.8 % (48.0-80.0); NRBC ABSOLUTE 0 K/uL; PLATELET COUNT,PLT 376 K/uL (150-400); RED BLOOD CELL COUNT 5.15 M/uL (4.30-5.90); WHITE BLOOD CELL COUNT,WBC 12.97 K/uL (4.0-11.0)
[2023-05-10 16:28] LABS: INR < 0.93 (0.86-1.11); PTT,PARTIAL THROMBOPLSTIN TIME 24.6 SEC (23.9-30.7)
[2023-05-10 16:39] LABS: A/G RATIO 0.8 (0.9-1.6); ALANINE AMINOTRANSFERASE,ALT 44 IU/L (14-63); ALBUMIN 3.7 g/dL (3.4-5.0); ALKALINE PHOSPHATASE 105 U/L (46-116); ASPARTATE AMNIOTRANSFERASE,AST 25 IU/L (15-37); BILIRUBIN TOTAL 0.4 mg/dL (0.2-1.0); BLOOD UREA NITROGEN,BUN 10 mg/dL (7.0-18.0); CALCIUM 9.3 mg/dL (8.5-10.1); CARBON DIOXIDE,CO2 30.4 mmol/L (21.0-32.0); CHLORIDE,CL 98 mmol/L (98-107); GLUCOSE RANDOM 94 mg/dL (74-106); MAGNESIUM 2.2 mg/dL (1.8-2.4); POTASSIUM,K 3.4 mmol/L (3.5-5.1); PROTEIN TOTAL,TP 8.4 g/dL (6.4-8.2); SODIUM,NA 135 mmol/L (136-145)
[2023-05-10 16:43] LABS: ESTIMATED GFR 69 mL/min (>60); ETHANOL BLOOD MEDICAL < 3.0 mg/dL
[2023-05-10 16:59] LABS: AMPHETAMINES SCREEN, URINE NEGATIVE (CUTOFF=500); BARBITURATE SCREEN,URINE NEGATIVE (CUTOFF=200); BENZODIAZEPINES SCREEN,URINE NEGATIVE (CUTOFF=150); BUPRENORPHINE SCREEN,URINE NEGATIVE (CUTOFF=10); METHADONE SCREEN, URINE NEGATIVE (CUTOFF=200); METHAMPHETAMINES SCREEN, URINE NEGATIVE (CUTOFF=500); OXYCODONE SCREEN,URINE NEGATIVE (CUT0FF=100); PCP SCREEN,URINE NEGATIVE (CUTOFF=25); PROPOXYPHENE SCREEN,URINE NEGATIVE (CUTOFF=300); THC SCREEN,URINE 20 NG/ML NEGATIVE (CUTOFF=50)
== END 2023-05-10 18:18 | disposition home or self-care (01) ==
LOC: MW.ED 15:42
DX: R29.90 Unspecified symptoms and signs involving the nervous system (principal); Z79.82 Long term (current) use of aspirin; Z79.899 Other long term (current) drug therapy; Z86.73 Personal history of transient ischemic attack (TIA), and cerebral infarction without residual deficits; Z88.2 Allergy status to sulfonamides; Z91.048 Other nonmedicinal substance allergy status
CPT/HCPCS: 36415; 70450; 70450-26; 80053; 80305-QW; 80307; 83735; 84484; 84703; 85025; 85610; 85730; 93005; 93010; 99282; 99285

== ENCOUNTER 2023-07-16 18:09 | Emergency (ER) | payer BC ==
[2023-07-16] MEDS ORDERED: Sodium Chloride 0.9% 1,000 ML IV ONE (18:16)
[2023-07-16 18:57] LABS: BASOPHILS ABSOLUTE AUTO 0.05 K/uL (0.00-0.20); BASOPHILS PERCENT AUTO 0.4 % (0.0-1.0); EOSINOPHILS ABSOLUTE AUTO 0.19 K/uL (0.00-0.45); EOSINOPHILS PERCENT AUTO 1.4 % (0.0-6.0); HEMATOCRIT 40.1 % (37.0-47.0); HEMOGLOBIN 14.1 g/dL (12.0-16.0); IMMATURE GRAN ABSOLUTE AUTO 0.08 K/uL (0.00-0.05); IMMATURE GRAN PERCENT AUTO 0.6 % (0.0-0.4); LYMPHOCYTES ABSOLUTE AUTO 2.26 K/uL (1.00-4.80); MEAN CORPUSCULAR HEMOGLOBIN 31.1 pg (28.0-32.0); MEAN CORPUSCULAR HGB CONC 35.2 g/dL (32.0-36.0); MEAN CORPUSCULAR VOLUME 88.5 fL (83.0-99.0); MEAN PLATELET VOLUME 8.7 fL (9.4-12.3); MONOCYTES ABSOLUTE AUTO 0.96 K/uL (0.00-0.80); MONOCYTES PERCENT AUTO 7.2 % (0.0-8.0); NEUTROPHILS ABSOLUTE AUTO 9.78 K/uL (1.80-7.70); NEUTROPHILS PERCENT AUTO 73.4 % (41.0-71.0); PLATELET COUNT,PLT 295 K/uL (150-400); RED BLOOD CELL COUNT 4.53 M/uL (4.10-5.30); WHITE BLOOD CELL COUNT,WBC 13.32 K/uL (3.9-11.3)
[2023-07-16 18:58] LABS: INR < 0.93 (0.86-1.11)
[2023-07-16 19:04] LABS: A/G RATIO 0.6 (0.9-1.6); ALANINE AMINOTRANSFERASE,ALT 52 IU/L (14-63); ALKALINE PHOSPHATASE 123 U/L (46-116); ASPARTATE AMNIOTRANSFERASE,AST 34 IU/L (15-37); BILIRUBIN TOTAL 0.2 mg/dL (0.2-1.0); BLOOD UREA NITROGEN,BUN 6 mg/dL (7.0-18.0); CALCIUM 9.3 mg/dL (8.5-10.1); CARBON DIOXIDE,CO2 28.1 mmol/L (21.0-32.0); CHLORIDE,CL 100 mmol/L (98-107); CREATININE 0.9 mg/dL (0.6-1.0); EST CRCL DRUG DOSING (CG) 74.34 mL/min; GLUCOSE RANDOM 101 mg/dL (74-106); LIPASE 26 U/L (16-77); POTASSIUM,K 3.6 mmol/L (3.5-5.1); PROTEIN TOTAL,TP 7.7 g/dL (6.4-8.2); SODIUM,NA 135 mmol/L (136-145)
[2023-07-16 19:05] LABS: ESTIMATED GFR 79 mL/min (>60)
[2023-07-16 19:08] LABS: D-DIMER QUANTITATIVE 0.41 mg/L FEU (0.00-0.50); PTT,PARTIAL THROMBOPLSTIN TIME 26.2 SEC (23.9-30.7)
[2023-07-16 19:17] LABS: TSH ULTRASENSITIVE 2.52 uIU/mL (0.36-3.74)
[2023-07-16 19:50] LABS: CORONAVIRUS COVID-19 NAA NEGATIVE (NEGATIVE); INFLUENZA A NAA NEGATIVE (NEGATIVE); INFLUENZA B NAA NEGATIVE (NEGATIVE)
[2023-07-16] MEDS ORDERED: Metoprolol Succinate 25 MG Tab.ER PO ONE (20:46)
== END 2023-07-16 21:05 | disposition home or self-care (01) ==
LOC: MW.ED 18:09
DX: R00.0 Tachycardia, unspecified (principal); Z90.710 Acquired absence of both cervix and uterus; Z79.82 Long term (current) use of aspirin; Z79.899 Other long term (current) drug therapy; Z88.2 Allergy status to sulfonamides; Z91.048 Other nonmedicinal substance allergy status; Z20.822 Contact with and (suspected) exposure to COVID-19
CPT/HCPCS: 0240U; 36415; 71045; 80053; 83690; 84443; 84484; 85025; 85379; 85610; 85730; 93005; 96360; 99285; A9270; J7030; 93010; 99283

== ENCOUNTER 2023-08-15 09:51 | Emergency (ER) | payer BC ==
[2023-08-15] MEDS ORDERED: Sodium Chloride 0.9% 1,000 ML IV ONE (10:11)
[2023-08-15] MEDS ORDERED: Ketorolac 30 MG/ML SDV IVPUSH ONE (10:11)
[2023-08-15 10:16] LABS: APPEARANCE,URINE CLEAR; BILIRUBIN,URINE NEGATIVE (NEGATIVE); COLOR,URINE YELLOW; GLUCOSE,URINE NEGATIVE (NEGATIVE); KETONES,URINE NEGATIVE (NEGATIVE); LEUKOCYTE ESTERASE,URINE TRACE (NEGATIVE); NITRITE,URINE NEGATIVE (NEGATIVE); OCCULT BLOOD,URINE SMALL (NEGATIVE); PROTEIN,URINE NEGATIVE (NEGATIVE); UROBILINOGEN,URINE 0.2 EU/dL (<2.0)
[2023-08-15 10:31] LABS: BASOPHILS ABSOLUTE AUTO 0.04 K/uL (0.00-0.20); BASOPHILS PERCENT AUTO 0.8 % (0.0-1.0); EOSINOPHILS ABSOLUTE AUTO 0.15 K/uL (0.00-0.45); EOSINOPHILS PERCENT AUTO 2.9 % (0.0-6.0); HEMATOCRIT 41.4 % (37.0-47.0); IMMATURE GRAN ABSOLUTE AUTO 0.01 K/uL (0.00-0.05); IMMATURE GRAN PERCENT AUTO 0.2 % (0.0-0.4); LYMPHOCYTES ABSOLUTE AUTO 2.04 K/uL (1.00-4.80); LYMPHOCYTES PERCENT AUTO 38.9 % (24.0-44.0); MEAN CORPUSCULAR HEMOGLOBIN 31.8 pg (28.0-32.0); MEAN CORPUSCULAR HGB CONC 36.2 g/dL (32.0-36.0); MEAN CORPUSCULAR VOLUME 87.7 fL (83.0-99.0); MEAN PLATELET VOLUME 8.5 fL (9.4-12.3); MONOCYTES ABSOLUTE AUTO 0.43 K/uL (0.00-0.80); MONOCYTES PERCENT AUTO 8.2 % (0.0-8.0); NEUTROPHILS ABSOLUTE AUTO 2.57 K/uL (1.80-7.70); PLATELET COUNT,PLT 241 K/uL (150-400); RED BLOOD CELL COUNT 4.72 M/uL (4.10-5.30); WHITE BLOOD CELL COUNT,WBC 5.24 K/uL (3.9-11.3)
[2023-08-15 10:32] LABS: EPITHELIAL CELLS,URINE FEW (NONE-FEW); RBC,URINE 0-3 (0-2/HPF); WBC,URINE 0-3 (0-5/HPF)
[2023-08-15 11:06] LABS: ALBUMIN 3.6 g/dL (3.4-5.0); BILIRUBIN TOTAL 0.5 mg/dL (0.2-1.0); CALCIUM 9.3 mg/dL (8.5-10.1); CARBON DIOXIDE,CO2 27.3 mmol/L (21.0-32.0); CREATININE 0.8 mg/dL (0.6-1.0); EST CRCL DRUG DOSING (CG) 80.51 mL/min; POTASSIUM,K 3.8 mmol/L (3.5-5.1); PROTEIN TOTAL,TP 7.2 g/dL (6.4-8.2)
[2023-08-15] MEDS ORDERED: Iopamidol 755 MG/ML 500 ML Multipack Bottle IVPUSH STA (11:18)
== END 2023-08-15 13:27 | disposition home or self-care (01) ==
LOC: MW.ED 09:51
DX: N20.0 Calculus of kidney (principal); N39.0 Urinary tract infection, site not specified; Z79.82 Long term (current) use of aspirin; Z79.899 Other long term (current) drug therapy; Z88.2 Allergy status to sulfonamides; Z91.048 Other nonmedicinal substance allergy status
CPT/HCPCS: 36415; 74177; 80053; 81001; 83690; 85025; 87086; 96361; 96374; 99285; J1885; J7030; Q9967